=== PATIENT | female | born 1975 | race Caucasian/White ===

== ENCOUNTER → 2016-07-18 | Outpatient (CLI) | payer MEDICAID | LOC: RAD 10:55 | PROVIDERS: ATTEND Nurse Practitioner Family | DX: J18.9 Pneumonia, unspecified organism (principal) | CPT/HCPCS: 71020 ==

== ENCOUNTER → 2016-08-16 | Outpatient (CLI) | payer MEDICAID | LOC: RAD 15:10 | PROVIDERS: ATTEND Specialist | DX: Z12.31 Encounter for screening mammogram for malignant neoplasm of breast (principal) | CPT/HCPCS: 77067; G0202 ==

== ENCOUNTER → 2016-10-26 | Outpatient (CLI) | payer MEDICAID ==
--- NOTE | 2016-10-26 15:11 | RADIOLOGY REPORT (SQ) ---
EXAM DESCRIPTION: FOOT LEFT COMPLETE COMPLETED DATE/TIME: 10/26/2016 1:42 pm REASON FOR STUDY: FOOT PAIN, LEFT M79.672 PAIN IN LEFT FOOT COMPARISON: None. NUMBER OF VIEWS: Three views. TECHNIQUE: AP, lateral and oblique radiographic images acquired of the left foot. LIMITATIONS: None. FINDINGS: MINERALIZATION: Normal. BONES: No acute fracture or dislocation. Plantar calcaneal spur without fracture. JOINTS: No effusions. SOFT TISSUES: No soft tissue swelling. No foreign body. OTHER: No other significant finding. IMPRESSION: Plantar calcaneal spur without fracture TECHNICAL DOCUMENTATION: JOB ID: [id number] [employer]- All Rights Reserved
== END ==
LOC: RAD 13:17
PROVIDERS: ATTEND Nurse Practitioner Family
DX: M77.32 Calcaneal spur, left foot (principal)

== ENCOUNTER 2016-11-27 16:58 | Emergency (ER) | payer MEDICAID ==
--- NOTE | 2016-11-27 18:18 | ER Document Report ---
ED Medical Screen (RME) - General Chief Complaint: Abdominal Pain Stated Complaint: LOWER RIGHT ABDOMINAL PAIN Time Seen by Provider: 11/27/16 18:12 Notes: This 41-year-old female patient scheduled to have a hysterectomy at the end of November for ovarian cysts and chronic pelvic pain. She reports she always has pain in the right lower quadrant of her abdomen, but this morning it was much worse than usual and different from usual. She does have a history of ovarian cysts. The pain today is different in that it is much worse and it goes into the low back on the right. I have greeted and performed a rapid initial assessment of this patient. A comprehensive ED assessment and evaluation of the patient, analysis of test results and completion of the medical decision making process will be conducted by additional ED providers. TRAVEL OUTSIDE OF THE [place] IN LAST 30 DAYS: No - Related Data Allergies/Adverse Reactions: No Known Allergies Allergy (Verified 11/27/16 18:10) Home Medications: Current Home Medications Albuterol Sulfate [Ventolin Hfa 8 gm Mdi (1 Mdi/ER Disp)] 2 puff IH PRN PRN [History] Budesonide/Formoterol Fumarate [Symbicort Hfa 160-4.5 Mcg Inhaler 6 gm] 1 puff IH Q12 11/27/16 [History] Exenatide Microspheres [Bydureon Pen] 2 mg SQ Q7D 11/27/16 [History] Fluoxetine HCl [Prozac] 40 mg PO DAILY 11/27/16 [History] Lisinopril 40 mg PO DAILY 11/27/16 [History] Medroxyprogesterone Acetate [Provera] 40 mg PO DAILY 11/27/16 [History] Metformin HCl [Glucophage] 2,000 mg PO BID 11/27/16 [History] Methimazole 10 mg PO DAILY 11/27/16 [History] Simvastatin 20 mg PO DAILY 11/27/16 [History] Past Medical History - Past Medical History Cardiac Medical History: Reports: Hx Hypercholesterolemia, Hx Hypertension Renal/ Medical History: Denies: Hx Peritoneal Dialysis Past Surgical History: Reports: Hx Appendectomy, Hx Gynecologic Surgery - ovarian cysts, Hx Tubal Ligation. Denies: Hx Mastectomy - left breast biopsy Physical Exam - Vital signs Vitals: Temp Pulse Resp BP Pulse Ox 98.5 F 95 16 118/80 96 11/27/16 17:15 11/27/16 17:15 11/27/16 17:15 11/27/16 17:15 11/27/16 17:15 Course - Vital Signs Vital signs: Temp Pulse Resp BP Pulse Ox 98.5 F 95 16 118/80 96 11/27/16 17:15 11/27/16 17:15 11/27/16 17:15 11/27/16 17:15 11/27/16 17:15
[2016-11-27] MEDS ORDERED: OXYCODONE-ACETAMINOPHEN 5-325 MG TABLET PO ONE ×2 (18:25→20:31)
[2016-11-27] MEDS ORDERED: ONDANSETRON 4 MG TAB.RAPDIS PO ONE (18:25)
[2016-11-27 19:29] LABS: ABSOLUTE BASOPHILS # (AUTO) 0.1 10^3/uL (0.0-0.2); ABSOLUTE EOSINOPHILS # (AUTO) 0.2 10^3/uL (0.0-0.6); ABSOLUTE LYMPHOCYTES (AUTO) 5.2 10^3/uL (0.5-4.7); ABSOLUTE MONOCYTES (AUTO) 0.7 10^3/uL (0.1-1.4); ABSOLUTE NEUT (AUTO) 6.1 10^3/uL (1.7-8.2); BASOPHILS % (AUTO) 0.6 % (0-2); EOSINOPHILS % (AUTO) 1.7 % (0-6); HEMATOCRIT 45.3 % (36.0-47.0); HEMOGLOBIN 15.1 g/dL (12.0-15.5); LYMPHOCYTES % (AUTO) 42.5 % (13-45); MEAN CORPUSCULAR HEMOGLOBIN 30.9 pg (27.0-33.4); MEAN CORPUSCULAR HGB CONC 33.3 g/dL (32.0-36.0); MEAN CORPUSCULAR VOLUME 93 fl (80-97); MONOCYTES % (AUTO) 5.7 % (3-13); RED BLOOD COUNT 4.89 10^6/uL (3.72-5.28); RED CELL DISTRIBUTION WIDTH 13.4 % (11.5-14.0); SEGMENTED NEUTROPHILS % (AUTO) 49.5 % (42-78); WHITE BLOOD COUNT 12.3 10^3/uL (4.0-10.5)
[2016-11-27 19:36] LABS: APPEARANCE,URINE SLIGHTLY-CLOUDY; BILIRUBIN,URINE NEGATIVE (NEGATIVE); GLUCOSE, URINE NEGATIVE (NEGATIVE); KETONES,URINE NEGATIVE (NEGATIVE); LEUKOCYTE ESTERASE,URINE SMALL (NEGATIVE); NITRITE,URINE NEGATIVE (NEGATIVE); PROTEIN,URINE 30 mg/dL (NEGATIVE); UROBILINOGEN,URINE NEGATIVE mg/dL (<2.0)
[2016-11-27 19:47] LABS: ALANINE AMINOTRANSFERASE 59 U/L (9-52); ALBUMIN 4.7 g/dL (3.5-5.0); ALKALINE PHOSPHATASE 110 U/L (38-126); ANION GAP 14 (5-19); ASPARTATE AMINO TRANSFERASE 24 U/L (14-36); BILIRUBIN,DIRECT 0.3 mg/dL (0.0-0.4); BILIRUBIN,TOTAL 0.4 mg/dL (0.2-1.3); BLOOD UREA NITROGEN 19 mg/dL (7-20); CARBON DIOXIDE 24 mmol/L (22-30); CHLORIDE 104 mmol/L (98-107); CREATININE RESULT 0.78 mg/dL (0.52-1.25); GLUCOSE 86 mg/dL (75-110); POTASSIUM 4.4 mmol/L (3.6-5.0); SODIUM 141.8 mmol/L (137-145); TOTAL PROTEIN 7.8 g/dL (6.3-8.2)
[2016-11-27] MEDS ORDERED: IBUPROFEN 600 MG TABLET PO ONE (20:31)
--- NOTE | 2016-11-27 20:35 | ER Document Report ---
ED GI/ - General Chief Complaint: Abdominal Pain Stated Complaint: LOWER RIGHT ABDOMINAL PAIN Time Seen by Provider: 11/27/16 18:12 Notes: Patient is a 41-year-old female, past medical history chronic pelvic pain from multiple ovarian cysts, appendectomy, presents with increasing right pelvic pain that feels different than her prior ovarian cyst. She is scheduled for a complete hysterectomy in 2-1/[address] Swenson. Patient denies nausea, vomiting, diarrhea, constipation, vaginal discharge, dysuria, hematuria, fevers or flank pain. TRAVEL OUTSIDE OF THE [place] IN LAST 30 DAYS: No - Related Data Allergies/Adverse Reactions: No Known Allergies Allergy (Verified 11/27/16 18:10) Home Medications: Current Home Medications Albuterol Sulfate [Ventolin Hfa 8 gm Mdi (1 Mdi/ER Disp)] 2 puff IH PRN PRN [History] Budesonide/Formoterol Fumarate [Symbicort Hfa 160-4.5 Mcg Inhaler 6 gm] 1 puff IH Q12 11/27/16 [History] Exenatide Microspheres [Bydureon Pen] 2 mg SQ Q7D 11/27/16 [History] Fluoxetine HCl [Prozac] 40 mg PO DAILY 11/27/16 [History] Lisinopril 40 mg PO DAILY 11/27/16 [History] Medroxyprogesterone Acetate [Provera] 40 mg PO DAILY 11/27/16 [History] Metformin HCl [Glucophage] 2,000 mg PO BID 11/27/16 [History] Methimazole 10 mg PO DAILY 11/27/16 [History] Simvastatin 20 mg PO DAILY 11/27/16 [History] Past Medical History - General Information source: Patient - Social History Smoking Status: Never Smoker Chew tobacco use (# tins/day): No Frequency of alcohol use: None Drug Abuse: None Family History: Reviewed & Not Pertinent - Past Medical History Cardiac Medical History: Reports: Hx Hypercholesterolemia, Hx Hypertension Endocrine Medical History: Reports: Hx Diabetes Mellitus Type 2 Renal/ Medical History: Denies: Hx Peritoneal Dialysis Past Surgical History: Reports: Hx Appendectomy, Hx Gynecologic Surgery - ovarian cysts, Hx Tubal Ligation. Denies: Hx Mastectomy - left breast biopsy - Immunizations Hx Diphtheria, Pertussis, Tetanus Vaccination: No Review of Systems - Review of Systems Notes: REVIEW OF SYSTEMS: CONSTITUTIONAL: -fevers, -chills EENT: -eye pain, -difficulty swallowing, -nasal congestion CARDIOVASCULAR:-chest pain, -syncope. RESPIRATORY: -cough, -SOB GASTROINTESTINAL: +RLQ abdominal pain, - nausea, -vomiting, -diarrhea GENITOURINARY: -dysuria, -hematuria MUSCULOSKELETAL: -back pain, -neck pain SKIN: -rash or skin lesions. HEMATOLOGIC: -easy bruising or bleeding. LYMPHATIC: -swollen, enlarged glands. NEUROLOGICAL: -altered mental status or loss of consciousness, -headache, - neurologic symptoms PSYCHIATRIC: -anxiety, -depression. ALL OTHER SYSTEMS REVIEWED AND NEGATIVE. Physical Exam - Vital signs Vitals: Temp Pulse Resp BP Pulse Ox 98.5 F 95 16 118/80 96 11/27/16 17:15 11/27/16 17:15 11/27/16 17:15 11/27/16 17:15 11/27/16 17:15 - Notes Notes: PHYSICAL EXAMINATION: GENERAL: Uncomfortable. HEAD: Atraumatic, normocephalic. EYES: Pupils equal round and reactive to light, extraocular movements intact, sclera anicteric, conjunctiva are normal. ENT: nares patent, oropharynx clear without exudates. Moist mucous membranes. NECK: Normal range of motion, supple without lymphadenopathy LUNGS: Breath sounds clear to auscultation bilaterally and equal. No wheezes rales or rhonchi. HEART: Regular rate and rhythm without murmurs ABDOMEN: Soft, nontender, normoactive bowel sounds. No guarding, no rebound. No masses appreciated. EXTREMITIES: Normal range of motion, no pitting or edema. No cyanosis. NEUROLOGICAL: Cranial nerves grossly intact. Normal speech, normal gait. Normal sensory and motor exams. PSYCH: Normal mood, normal affect. SKIN: Warm, Dry, normal turgor, no rashes or lesions noted. Course - Re-evaluation Re-evalutation: Patient has a right ovarian cyst without evidence of torsion at this time. She has a total hysterectomy scheduled in 2 weeks. She does not have an appendix. 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 Given strict return precautions about ovarian torsion and she understands. - Vital Signs Vital signs: Temp Pulse Resp BP Pulse Ox 98.5 F 95 16 118/80 96 11/27/16 17:15 11/27/16 17:15 11/27/16 17:15 11/27/16 17:15 11/27/16 17:15 - Laboratory Result Diagrams: 11/27/16 19:04 11/27/16 19:04 Laboratory results interpreted by me: 11/27/16 11/27/16 11/27/16 19:04 19:04 19:04 WBC 12.3 H Absolute Lymphocytes 5.2 H ALT 59 H Urine Protein 30 H Urine Blood MODERATE H Ur Leukocyte Esterase SMALL H - Diagnostic Test Radiology reviewed: Image reviewed, Reports reviewed Radiology results interpreted by me: US Transvaginal: 2.7 x 2.7 x 1.9 cm right ovarian cyst with good arterial blood flow Discharge - Discharge Clinical Impression: Right ovarian cyst Condition: Stable Disposition: HOME, SELF-CARE Additional Instructions: Ovarian Cyst Your examination shows the presence of an ovarian cyst. This is a ball of fluid attached to the ovary. Ovarian cysts in women of child-bearing age are usually innocent. However, the cyst may cause pain when it grows or bursts. An innocent ovarian cyst will usually go away by itself. When the cyst becomes painful, you should rest. Pain medication may be required. Some women find a hot water bottle soothing. The pain usually resolves within one or two days. After menopause, an ovarian cyst may mean a tumor, and requires more aggressive evaluation -- usually surgery is recommended to remove or biopsy the cyst. A very large cyst requires evaluation at any age. Most cysts (even the innocent ones) require follow-up examination. Call the doctor or return at any time if the pain increases significantly, if you become faint, or if you experience vaginal bleeding. Prescriptions: Tramadol HCl [Ultram 50 mg Tablet] 50 mg PO Q4HP PRN #10 tab PRN Reason: Referrals: COLLIN SWENSON MD [ACTIVE STAFF] - Follow up as needed
--- NOTE | 2016-11-27 20:39 | RADIOLOGY REPORT (SQ) ---
EXAM DESCRIPTION: U/S NON-OB PELVIS TV W/O DOP COMPLETED DATE/TIME: 11/27/2016 8:29 pm REASON FOR STUDY: right pelvic pain, PMH ovary cysts, on provera COMPARISON: None. TECHNIQUE: Dynamic and static grayscale images acquired of the pelvis via transvaginal approach and recorded on PACS. Additional selected color Doppler and spectral images recorded. LIMITATIONS: None. FINDINGS: UTERUS: Contour normal. No mass. ENDOMETRIAL STRIPE: No focal or generalized thickening. No masses. CERVIX: No nabothian cysts. RIGHT OVARY: Right ovarian cyst is identified measuring 2.7 x 2.7 x 1.9 cm RIGHT OVARY DOPPLER: Normal arterial vascular flow without evidence for torsion. LEFT OVARY: Status post left oophorectomy FREE FLUID: None noted. OTHER: No other significant finding. MEASUREMENTS: UTERUS: 8.8 x 5.5 x 4.7 cm ENDOMETRIAL STRIPE: 3 mm RIGHT OVARY: 5.0 x 3.0 x 3.2 cm LEFT OVARY: Status post oophorectomy IMPRESSION: Right ovarian cyst as noted above. No other significant pelvic abnormalities were ident ified. Other findings as noted above TECHNICAL DOCUMENTATION: JOB ID: [id number] [employer]- All Rights Reserved
[2016-11-27 20:59] VITALS: BP 135/76
== END 2016-11-27 21:00 | disposition home or self-care (01) ==
LOC: ER 16:58
DX: N83.201 Unspecified ovarian cyst, right side (principal); R10.9 Unspecified abdominal pain; R10.30 Lower abdominal pain, unspecified; R10.2 Pelvic and perineal pain; G89.29 Other chronic pain; Z79.899 Other long term (current) drug therapy
CPT/HCPCS: 99284; 36415; 85025; 80053; 81001; 76830; S0119; J3490

== ENCOUNTER 2017-02-06 20:43 | Emergency (ER) | payer MEDICAID ==
[2017-02-06 20:51] VITALS: BP 127/65
--- NOTE | 2017-02-06 22:30 | ER Document Report ---
HPI - HPI Pain Level: 3 Context: Patient is a 41-year-old female presents emergency department complaining of right ear pain. Patient states that she has had this pain for about 1 week. She admits to pain in her ear with difficulty hearing. She states it hurts when she was rear when she applies pressure to her ear. Does have a history of TMJ. - CARDIOVASCULAR Cardiovascular: DENIES: Chest pain Past Medical History - Social History Smoking Status: Former Smoker Chew tobacco use (# tins/day): No Frequency of alcohol use: None Drug Abuse: None Family History: Reviewed & Not Pertinent Patient has suicidal ideation: No Patient has homicidal ideation: No - Past Medical History Cardiac Medical History: Reports: Hx Hypercholesterolemia, Hx Hypertension Endocrine Medical History: Reports: Hx Diabetes Mellitus Type 2 Renal/ Medical History: Denies: Hx Peritoneal Dialysis Past Surgical History: Reports: Hx Appendectomy, Hx Gynecologic Surgery - ovarian cysts, Hx Tubal Ligation. Denies: Hx Mastectomy - left breast biopsy - Immunizations Hx Diphtheria, Pertussis, Tetanus Vaccination: No Vertical Provider Document - CONSTITUTIONAL Notes: PHYSICAL EXAM GENERAL: Alert, interacts well. HEAD: Normocephalic, atraumatic. EYES: Pupils equal, round, and reactive to light. Extraocular movements intact. ENT: Evidence of external auditory canal erythema and tenderness of the right side. No evidence of vesicular disease. Tympanic membrane intact without evidence of bulging, perforation, injection or effusion oral mucosa moist, tongue midline. NECK: Full range of motion. Supple. Trachea midline. LUNGS: Clear to auscultation bilaterally, no wheezes, rales, or rhonchi. No respiratory distress. HEART: Regular rate and rhythm. No murmurs, gallops, or rubs. NEUROLOGICAL: Alert and oriented x4. Normal speech. PSYCH: Normal affect, normal mood. SKIN: Warm, dry, normal turgor. No rashes or lesions noted. - INFECTION CONTROL TRAVEL OUTSIDE OF THE [place] IN LAST 30 DAYS: No - RESPIRATORY O2 Sat by Pulse Oximetry: 97 Course - Re-evaluation Re-evalutation: 02/06/17 22:39 Patient is a 41-year-old female is hemodynamically stable, no acute distress afebrile. Presentation today is consistent with otitis externa. Educated mom on utilization of polymyxin B drops with hydrocortisone for her pain and otherwise to follow-up with primary care. Patient agrees with plan. Discussed signs and symptoms indicating return to the emergency department. - Vital Signs Vital signs: Temp Pulse Resp BP Pulse Ox 99.1 F 98 18 127/65 H 97 02/06/17 20:49 02/06/17 20:49 02/06/17 20:49 02/06/17 20:49 02/06/17 20:49 Discharge - Discharge Clinical Impression: Otitis externa Qualifiers: Otitis externa type: unspecified type Chronicity: acute Laterality: right Qualified Code(s): H60.501 - Unspecified acute noninfective otitis externa, right ear Condition: Good Disposition: HOME, SELF-CARE Instructions: Otitis Externa ([facility]), Acetaminophen, Use of Ear Drops ([facility]) Additional Instructions: Please utilize the eardrops eardrops 4 drops 4 times a day to the affected ear for 7 days. Please follow-up with your primary care provider in about 1 week for recheck. Forms: Return to School Referrals: SERVANDO YOU NP [Primary Care Provider] - Follow up in 1 week
[2017-02-06] MEDS ORDERED: NEOMY SULF/POLYMYX B SULF/HC OTIC SUSP 10 ML AD ONE (22:37)
[2017-02-06] MEDS ORDERED: DOCUSATE SODIUM 100 MG CAPSULE RT_EAR ONE (22:37)
[2017-02-06] MEDS ORDERED: IBUPROFEN 800 MG TABLET PO ONE (22:39)
== END 2017-02-06 23:04 | disposition home or self-care (01) ==
LOC: ER 20:43
DX: H60.501 Unspecified acute noninfective otitis externa, right ear (principal); H92.01 Otalgia, right ear; E11.9 Type 2 diabetes mellitus without complications; I10 Essential (primary) hypertension; Z87.891 Personal history of nicotine dependence
CPT/HCPCS: 99283; J3490 ×3

== ENCOUNTER → 2017-04-26 | Outpatient (CLI) | payer MEDICAID ==
[2017-04-26 11:17] LABS: ABSOLUTE BASOPHILS # (AUTO) 0.1 10^3/uL (0.0-0.2); ABSOLUTE EOSINOPHILS # (AUTO) 0.4 10^3/uL (0.0-0.6); ABSOLUTE LYMPHOCYTES (AUTO) 4.6 10^3/uL (0.5-4.7); ABSOLUTE MONOCYTES (AUTO) 0.7 10^3/uL (0.1-1.4); ABSOLUTE NEUT (AUTO) 4.8 10^3/uL (1.7-8.2); BASOPHILS % (AUTO) 0.6 % (0-2); EOSINOPHILS % (AUTO) 3.9 % (0-6); HEMATOCRIT 37.3 % (36.0-47.0); HEMOGLOBIN 12.7 g/dL (12.0-15.5); LYMPHOCYTES % (AUTO) 43.8 % (13-45); MEAN CORPUSCULAR HEMOGLOBIN 31.9 pg (27.0-33.4); MEAN CORPUSCULAR VOLUME 94 fl (80-97); MONOCYTES % (AUTO) 6.3 % (3-13); PLATELET COUNT 210 10^3/uL (150-450); RED BLOOD COUNT 3.97 10^6/uL (3.72-5.28); SEGMENTED NEUTROPHILS % (AUTO) 45.4 % (42-78); TOTAL CELLS COUNTED % (AUTO) 100 %; WHITE BLOOD COUNT 10.5 10^3/uL (4.0-10.5)
[2017-04-26 11:40] LABS: ALANINE AMINOTRANSFERASE 73 U/L (9-52); ALBUMIN 4.6 g/dL (3.5-5.0); ALKALINE PHOSPHATASE 72 U/L (38-126); ANION GAP 12 (5-19); ASPARTATE AMINO TRANSFERASE 38 U/L (14-36); BILIRUBIN,DIRECT 0.2 mg/dL (0.0-0.4); BILIRUBIN,TOTAL 0.5 mg/dL (0.2-1.3); BLOOD UREA NITROGEN 28 mg/dL (7-20); CALCIUM 10.6 mg/dL (8.4-10.2); CARBON DIOXIDE 24 mmol/L (22-30); CHLORIDE 107 mmol/L (98-107); GLUCOSE 88 mg/dL (75-110); POTASSIUM 5.4 mmol/L (3.6-5.0); SODIUM 143.3 mmol/L (137-145); TOTAL PROTEIN 7.4 g/dL (6.3-8.2)
== END ==
LOC: LAB 11:01
PROVIDERS: ATTEND Nurse Practitioner Family
DX: R10.11 Right upper quadrant pain (principal); R19.7 Diarrhea, unspecified; R11.10 Vomiting, unspecified
CPT/HCPCS: 36415; 80053; 85025; 87045; 87205; 87493; 89055

== ENCOUNTER 2017-08-14 14:44 | Inpatient (IN) | payer MEDICAID ==
--- NOTE | 2017-08-14 15:19 | ER Document Report ---
ED Medical Screen (RME) - General Chief Complaint: Weakness Stated Complaint: BLOOD SUGAR ISSUES Time Seen by Provider: 08/14/17 15:17 Notes: Patient is a 42-year-old female, past medical history diabetes, presents after a syncopal episode where she woke up on the ground. She hit her head and does not know what happened. No history of seizures and no loss of bowel or bladder. Blood glucose was 72 before eating some snacks prior to arrival. She checked her pulse after waking up and was 152 and blood pressure was 80/40. PE: NAD. Tachycardia. Lungs CTAB. 5/5 strength in all 4 extremities. I have greeted and performed a rapid initial assessment of this patient. A comprehensive ED assessment and evaluation of the patient, analysis of test results and completion of the medical decision making process will be conducted by additional ED providers. TRAVEL OUTSIDE OF THE [place] IN LAST 30 DAYS: No - Related Data Allergies/Adverse Reactions: No Known Allergies Allergy (Verified 08/14/17 14:45) Past Medical History - Past Medical History Cardiac Medical History: Reports: Hx Hypercholesterolemia, Hx Hypertension Endocrine Medical History: Reports: Hx Diabetes Mellitus Type 2 Renal/ Medical History: Denies: Hx Peritoneal Dialysis Past Surgical History: Reports: Hx Appendectomy, Hx Gynecologic Surgery - ovarian cysts, Hx Tubal Ligation. Denies: Hx Mastectomy - left breast biopsy - Immunizations Hx Diphtheria, Pertussis, Tetanus Vaccination: No Physical Exam - Vital signs Vitals: Temp Pulse Resp BP Pulse Ox 98.6 F 103 H 18 112/58 L 99 08/14/17 14:50 08/14/17 14:50 08/14/17 14:50 08/14/17 14:50 08/14/17 14:50 Course - Vital Signs Vital signs: Temp Pulse Resp BP Pulse Ox 98.6 F 103 H 18 112/58 L 99 08/14/17 14:50 08/14/17 14:50 08/14/17 14:50 08/14/17 14:50 08/14/17 14:50 Doctor's Discharge - Discharge Referrals: SERVANDO YOU NP [Primary Care Provider] - Follow up as needed
[2017-08-14 15:55] LABS: ABSOLUTE BASOPHILS # (AUTO) 0.1 10^3/uL (0.0-0.2); ABSOLUTE EOSINOPHILS # (AUTO) 0.2 10^3/uL (0.0-0.6); ABSOLUTE LYMPHOCYTES (AUTO) 4.5 10^3/uL (0.5-4.7); ABSOLUTE MONOCYTES (AUTO) 0.5 10^3/uL (0.1-1.4); ABSOLUTE NEUT (AUTO) 4.7 10^3/uL (1.7-8.2); BASOPHILS % (AUTO) 0.5 % (0-2); EOSINOPHILS % (AUTO) 1.9 % (0-6); HEMATOCRIT 41.4 % (36.0-47.0); LYMPHOCYTES % (AUTO) 45.4 % (13-45); MEAN CORPUSCULAR HEMOGLOBIN 30.9 pg (27.0-33.4); MEAN CORPUSCULAR HGB CONC 33.8 g/dL (32.0-36.0); MEAN CORPUSCULAR VOLUME 91 fl (80-97); MONOCYTES % (AUTO) 4.8 % (3-13); PLATELET COUNT 227 10^3/uL (150-450); RED BLOOD COUNT 4.53 10^6/uL (3.72-5.28); RED CELL DISTRIBUTION WIDTH 13.6 % (11.5-14.0); SEGMENTED NEUTROPHILS % (AUTO) 47.4 % (42-78); TOTAL CELLS COUNTED % (AUTO) 100 %
--- NOTE | 2017-08-14 16:12 | RADIOLOGY REPORT (SQ) ---
EXAM DESCRIPTION: CT HEAD WITHOUT COMPLETED DATE/TIME: 08/14/2017 4:01 pm REASON FOR STUDY: head injury, syncope COMPARISON: None. TECHNIQUE: Axial images acquired through the brain without intravenous contrast. Images reviewed wi th bone, brain and subdural windows. Images stored on PACS. All CT scanners at this facility use dose modulation, iterative reconstruction, and/or weight based d osing when appropriate to reduce radiation dose to as low as reasonably achievable (ALARA). [facility]: Dose Right [facility]: CareDose [facility]: Dose Right [facility]: Teradose 4D [facility]: Smart Zazoom RADIATION DOSE: CT Rad equipment meets quality standard of care and radiation dose reduction techniq ues were employed. CTDIvol: 53.2 mGy. DLP: 964 mGy-cm. mGy. LIMITATIONS: None. FINDINGS: VENTRICLES: Normal size and contour. CEREBRUM: No masses. No hemorrhage. No midline shift. No evidence for acute infarction. Normal gra y/white matter differentiation. No areas of low density in the white matter. CEREBELLUM: No masses. No hemorrhage. No alteration of density. No evidence for acute infarction. EXTRAAXIAL SPACES: No fluid collections. No masses. ORBITS AND GLOBE: No intra- or extraconal masses. Normal contour of globe without masses. CALVARIUM: No fracture. PARANASAL SINUSES: No fluid or mucosal thickening. SOFT TISSUES: No mass or hematoma. OTHER: No other significant finding. IMPRESSION: NORMAL BRAIN CT WITHOUT CONTRAST. EVIDENCE OF ACUTE STROKE: NO. COMMENT: Quality ID # [id number]: Final reports with documentation of one or more dose reduction techniques (e.g., Automated exposure control, adjustment of the mA and/or kV according to patient size, use of iterative reconstruction technique) TECHNICAL DOCUMENTATION: JOB ID: [id number] [employer]- All Rights Reserved Reading location - IP/workstation name: [facility]
[2017-08-14 16:13] LABS: ALANINE AMINOTRANSFERASE 80 U/L (9-52); ALBUMIN 4.7 g/dL (3.5-5.0); ALKALINE PHOSPHATASE 71 U/L (38-126); ANION GAP 16 (5-19); ASPARTATE AMINO TRANSFERASE 38 U/L (14-36); BILIRUBIN,DIRECT 0.2 mg/dL (0.0-0.4); BILIRUBIN,TOTAL 0.3 mg/dL (0.2-1.3); BLOOD UREA NITROGEN 32 mg/dL (7-20); CARBON DIOXIDE 22 mmol/L (22-30); CHLORIDE 104 mmol/L (98-107); GLUCOSE 117 mg/dL (75-110); POTASSIUM 4.9 mmol/L (3.6-5.0); SODIUM 142.1 mmol/L (137-145); TOTAL PROTEIN 7.5 g/dL (6.3-8.2)
--- NOTE | 2017-08-14 16:42 | ER Document Report ---
ED General - General Chief Complaint: Weakness Stated Complaint: BLOOD SUGAR ISSUES Time Seen by Provider: 08/14/17 15:17 Mode of Arrival: Ambulatory Information source: Patient Notes: 42-year-old female presents with complaints of syncopal episode. 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 IN LAST 30 DAYS: No - HPI Onset: Just prior to arrival Onset/Duration: Sudden Quality of pain: No pain Severity: Mild Pain Level: Denies Associated symptoms: Weakness Exacerbated by: Other - medication Relieved by: Denies Similar symptoms previously: Yes Recently seen / treated by doctor: Yes - Related Data Allergies/Adverse Reactions: No Known Allergies Allergy (Verified 08/14/17 14:45) Past Medical History - Social History Smoking Status: Former Smoker Cigarette use (# per day): No Chew tobacco use (# tins/day): No Smoking Education Provided: No Frequency of alcohol use: None Drug Abuse: None Family History: Reviewed & Not Pertinent Patient has suicidal ideation: No Patient has homicidal ideation: No - Past Medical History Cardiac Medical History: Reports: Hx Hypercholesterolemia, Hx Hypertension Endocrine Medical History: Reports: Hx Diabetes Mellitus Type 2 Renal/ Medical History: Denies: Hx Peritoneal Dialysis Past Surgical History: Reports: Hx Appendectomy, Hx Gynecologic Surgery - ovarian cysts, Hx Tubal Ligation. Denies: Hx Mastectomy - left breast biopsy - Immunizations Hx Diphtheria, Pertussis, Tetanus Vaccination: No Review of Systems - Review of Systems Notes: REVIEW OF SYSTEMS: CONSTITUTIONAL : Denies fever, chills, or sweats. Denies recent illness. EENT: Denies eye, ear, throat, or mouth pain or symptoms. Denies nasal or sinus congestion or discharge. Denies throat, tongue, or mouth swelling or difficulty swallowing. CARDIOVASCULAR: Denies chest pain. Denies palpitations or racing or irregular heart beat. Denies ankle edema. RESPIRATORY: Denies cough, cold, or chest congestion. Denies shortness of breath, difficulty breathing, or wheezing. GASTROINTESTINAL: Denies abdominal pain or distention. Denies nausea, vomiting , or diarrhea. Denies blood in vomitus, stools, or per rectum. Denies black, tarry stools. Denies constipation. GENITOURINARY: Denies difficulty urinating, painful urination, burning, frequency, blood in urine, or discharge. FEMALE GENITOURINARY: Denies vaginal bleeding, heavy or abnormal periods, irregular periods. Denies vaginal discharge or odor. MUSCULOSKELETAL: Denies back or neck pain or stiffness. Denies joint pain or swelling. SKIN: Denies rash, lesions or sores. HEMATOLOGIC : Denies easy bruising or bleeding. LYMPHATIC: Denies swollen, enlarged glands. NEUROLOGICAL: Admits to syncope. PSYCHIATRIC: Denies anxiety or stress. Denies depression, suicidal ideation, or homicidal ideation. ALL OTHER SYSTEMS REVIEWED AND NEGATIVE. PHYSICAL EXAMINATION: GENERAL: Well-appearing, well-nourished and in no acute distress. HEAD: Atraumatic, normocephalic. EYES: Pupils equal round and reactive to light, extraocular movements intact, conjunctiva are normal. ENT: Nares patent, oropharynx clear without exudates. Moist mucous membranes. NECK: Normal range of motion, supple without lymphadenopathy LUNGS: Breath sounds clear to auscultation bilaterally and equal. No wheezes rales or rhonchi. HEART: Regular rate and rhythm without murmurs ABDOMEN: Soft, nontender, nondistended abdomen. No guarding, no rebound. No masses appreciated. Female : deferred Musculoskeletal: Normal range of motion, no pitting or edema. No cyanosis. NEUROLOGICAL: Cranial nerves grossly intact. Normal speech, normal gait. Normal sensory, motor exams PSYCH: Normal mood, normal affect. SKIN: Warm, Dry, normal turgor, no rashes or lesions noted. Dictation was performed using [employer] voice recognition software Physical Exam - Vital signs Vitals: Temp Pulse Resp BP Pulse Ox 98.6 F 103 H 18 112/58 L 99 08/14/17 14:50 08/14/17 14:50 08/14/17 14:50 08/14/17 14:50 08/14/17 14:50 Course - Re-evaluation Re-evalutation: 08/14/17 16:41 Patient's blood sugar as of her symptoms, she also notes intermittent hypotension episodes as well. Lab work imaging noted no significant abnormality I will watch her and recheck her blood sugar to make sure that it does not drop quickly, 08/14/17 19:32 Patient is given IV fluids has been bad and has been given dextrose and the blood sugar keeps dropping 08/14/17 23:59 Patient was admitted to the hospitalist service for hypotension and hypoglycemia - Vital Signs Vital signs: Temp Pulse Resp BP Pulse Ox 97.7 F 89 12 111/72 99 08/14/17 22:06 08/14/17 22:06 08/14/17 22:06 08/14/17 22:06 08/14/17 22:06 - Laboratory Result Diagrams: 08/14/17 15:42 08/14/17 15:42 Laboratory results interpreted by me: 08/14/17 08/14/17 08/14/17 15:05 15:42 15:42 Lymphocytes % 45.4 H BUN 32 H Est GFR (Non-Af Amer) 58 L Glucose 117 H POC Glucose 133 H AST 38 H ALT 80 H Urine Blood Urine Nitrite 08/14/17 08/14/17 18:36 18:44 Lymphocytes % BUN Est GFR (Non-Af Amer) Glucose POC Glucose 118 H AST ALT Urine Blood SMALL H Urine Nitrite POSITIVE H - Diagnostic Test Radiology reviewed: Image reviewed, Reports reviewed Critical Care Note - Critical Care Note Total time excluding time spent on procedures (mins): 56 Comments: 56 minutes of critical care time spent in direct contact evaluating and reevaluating the patient, treating symptoms, reviewing labs and studies and speaking with family and consultants excluding any procedures Discharge - Discharge Clinical Impression: Hypoglycemia Hypotension Qualifiers: Hypotension type: hypotension due to drug Qualified Code(s): I95.2 - Hypotension due to drugs Condition: Stable Disposition: ADMITTED OBSERVATION Admitting Provider: Hospitalist Unit Admitted: Telemetry
[2017-08-14] MEDS ORDERED: NORMAL SALINE 1000 ML 1,000 ML IV ONE ×2 (16:47→18:51)
[2017-08-14] MEDS ORDERED: DEXTROSE 50%-WATER 25 GM/50 ML DISP.SYRIN IV ONE (17:56)
[2017-08-14 19:13] LABS: AMORPHOUS SEDIMENT,URINE TRACE /HPF; APPEARANCE,URINE CLOUDY; BILIRUBIN,URINE NEGATIVE (NEGATIVE); COLOR,URINE YELLOW; GLUCOSE, URINE NEGATIVE (NEGATIVE); KETONES,URINE NEGATIVE (NEGATIVE); LEUKOCYTE ESTERASE,URINE NEGATIVE (NEGATIVE); NITRITE,URINE POSITIVE (NEGATIVE); PROTEIN,URINE NEGATIVE (NEGATIVE); URINE SPECIFIC GRAVITY 1.009; UROBILINOGEN,URINE NEGATIVE mg/dL (<2.0)
[2017-08-14] MEDS ORDERED: DEXTROSE 5%-NORMAL SALINE 1,000 ML IV ONE (19:48)
[2017-08-14] MEDS ORDERED: ACETAMINOPHEN 325 MG TABLET PO PRN (20:22)
[2017-08-14] MEDS ORDERED: ONDANSETRON HCL INJ/PF 4 MG/2 ML SDV IV PRN (20:22)
[2017-08-14] MEDS ORDERED: GLUCAGON,HUMAN RECOMB 1 MG INJ IM PRN (20:30)
[2017-08-14] MEDS ORDERED: INSULIN LISPRO 100 UNIT/ML 3 ML VIAL SUBCUT PRN (20:30)
[2017-08-14] MEDS ORDERED: DEXTROSE 40% GEL 15 GM TUBE PO PRN ×2 (20:30)
[2017-08-14] MEDS ORDERED: DEXTROSE 50%-WATER 25 GM/50 ML DISP.SYRIN IV PRN ×2 (20:30)
--- NOTE | 2017-08-14 22:30 | EKG REPORT ---
SEVERITY:- BORDERLINE ECG - SINUS RHYTHM BORDERLINE R WAVE PROGRESSION, ANTERIOR LEADS : Confirmed by: Jane Schmidt 14-Aug-2017 22:29:26
--- NOTE | 2017-08-14 22:51 | PDOC H&P ---
History of Present Illness Admission Date/PCP: 08/14/17 20:15 SERVANDO YOU NP History of Present Illness: JULIO MARTÍNEZ is a 42 year old female patient with past medical history of diabetes mellitus, hypothyroidism, hypertension, hyperlipidemia and depression who report is she has been in her usual baseline state of health up until 2 days when she started to have dizziness and generalized body weakness. Patient notes her blood sugar is dropping in 40s despite eating adequately. In ER patient found to have blood sugar in 40s for which she given dextrose and she is fed well but her blood glucose remained low. Patient also noted to have hypotension with systolic of 70s for which she was given bolus of normal saline. At home patient takes metformin thousand milligrams twice a day and Exenatide extended release. Patient states that she has been losing weight and supposed to come off some of her diabetic medication by her pest control applicator in the coming 2 weeks. Patient denied any chills, fever, chest pain, cough, nausea , vomiting, abdominal pain or any change in her bowel habits. She does not have any urgency frequency or dysuria. Even though she has dizziness patient denied any blurring of vision or any seizure activity. Past Medical History Cardiac Medical History: Reports: Hyperlipidema, Hypertension Denies: Congestive Heart Failure, Myocardial Infarction Pulmonary Medical History: Reports: Asthma, Bronchitis, Pneumonia Denies: Chronic Obstructive Pulmonary Disease (COPD), Tuberculosis Neurological Medical History: Denies: Seizures Endocrine Medical History: Reports: Diabetes Mellitus Type 2 Renal/ Medical History: Denies: End Stage Renal Disease GI Medical History: Denies: Cirrhosis, Gastroesophageal Reflux Disease Musculoskeltal Medical History: Reports: Arthritis Psychiatric Medical History: Denies: Bipolar Disorder, Depression Hematology: Denies: Anemia, Bleeding Tendencies Past Surgical History Past Surgical History: Reports: Appendectomy, Hysterectomy, Orthopedic Surgery - L wrist, Tubal Ligation Denies: Mastectomy - left breast biopsy Social History Smoking Status: Former Smoker - Advance Directive Resuscitation Status: Full Code Family History Family History: Reviewed & Not Pertinent Parental Family History Reviewed: Yes Children Family History Reviewed: Yes Sibling(s) Family History Reviewed.: Yes Medication/Allergy Home Medications: Albuterol Sulfate [Ventolin Hfa 8 gm Mdi (1 Mdi/ER Disp)] 2 puff IH PRN PRN Budesonide/Formoterol Fumarate [Symbicort Hfa 160-4.5 Mcg Inhaler 6 gm] 2 puff IH Q12 11/27/16 Fluoxetine HCl [Prozac] 40 mg PO DAILY 11/27/16 Metformin HCl [Glucophage] 1,000 mg PO BID 11/27/16 Methimazole 10 mg PO DAILY 11/27/16 Simvastatin 20 mg PO DAILY 11/27/16 Estradiol [Estrace] 2 mg PO QHS 08/14/17 Lisinopril/Hydrochlorothiazide [Lisinopril-Hctz 20-12.5 mg Tab] 1 tab PO DAILY 08/14/17 Spironolactone [Aldactone] 50 mg PO QHS 08/14/17 Allergies/Adverse Reactions: No Known Allergies Allergy (Verified 08/14/17 14:45) Review of Systems Constitutional: PRESENT: as per HPI Ears: PRESENT: as per HPI Cardiovascular: PRESENT: as per HPI Respiratory: PRESENT: as per HPI Gastrointestinal: PRESENT: as per HPI Physical Exam Vital Signs: Temp Pulse Resp BP Pulse Ox 98.6 F 103 H 17 105/60 99 08/14/17 14:50 08/14/17 14:50 08/14/17 21:31 08/14/17 21:31 08/14/17 21:31 General appearance: PRESENT: no acute distress Head exam: PRESENT: atraumatic, normocephalic Respiratory exam: PRESENT: clear to auscultation kristin. ABSENT: rales, rhonchi, wheezes Cardiovascular exam: PRESENT: RRR. ABSENT: diastolic murmur, rubs, systolic murmur Neurological exam: PRESENT: alert, awake, oriented to time Results Impressions: Head CT 08/14/17 15:19 IMPRESSION: NORMAL BRAIN CT WITHOUT CONTRAST. EVIDENCE OF ACUTE STROKE: NO. Assessment & Plan - Diagnosis (1) Hypoglycemia Is this a current diagnosis for this admission?: Yes Plan: Patient has been started on normal saline and dextrose. Her blood sugar is coming up. Hold her metformin and injectables (2) Hypotension Qualifiers: Hypotension type: hypotension due to drug Qualified Code(s): I95.2 - Hypotension due to drugs Is this a current diagnosis for this admission?: Yes Plan: Patient has been getting normal saline at rate of 125 mL/h. We will hold her antihypertensive medications. (3) Diabetes mellitus Qualifiers: Diabetes mellitus type: type 2 Is this a current diagnosis for this admission?: Yes Plan: Hold injectables and oral hypoglycemic agent We will start her on sliding scale. Patient needs follow-up with her primary endocrinologists to adjust her medications. (4) Hyperlipidemia Qualifiers: Hyperlipidemia type: unspecified Qualified Code(s): E78.5 - Hyperlipidemia , unspecified Is this a current diagnosis for this admission?: Yes Plan: Continue oral statins - Time Time Spent: 30 to 50 Minutes - Inpatient Certification Medical Necessity: Need For IV Fluids
[2017-08-15 05:11] LABS: HEMATOCRIT 34.5 % (36.0-47.0); MEAN CORPUSCULAR HEMOGLOBIN 31.3 pg (27.0-33.4); MEAN CORPUSCULAR HGB CONC 34.2 g/dL (32.0-36.0); MEAN CORPUSCULAR VOLUME 91 fl (80-97); PLATELET COUNT 180 10^3/uL (150-450); RED BLOOD COUNT 3.77 10^6/uL (3.72-5.28); RED CELL DISTRIBUTION WIDTH 13.3 % (11.5-14.0)
[2017-08-15 05:16] LABS: HEMOGLOBIN 11.8 g/dL (12.0-15.5)
[2017-08-15 05:30] LABS: ANION GAP 13 (5-19); BLOOD UREA NITROGEN 26 mg/dL (7-20); CALCIUM 9.2 mg/dL (8.4-10.2); CARBON DIOXIDE 21 mmol/L (22-30); CHLORIDE 108 mmol/L (98-107); GLUCOSE 90 mg/dL (75-110); POTASSIUM 4.6 mmol/L (3.6-5.0); SODIUM 142.1 mmol/L (137-145)
[2017-08-15] MEDS: LANSOPRAZOLE 15 MG TAB.RAP.DR PO SCH (06:24)
[2017-08-15] MEDS: DEXTROSE 5%-NORMAL SALINE 1,000 ML IV PRN (06:27)
[2017-08-15] MEDS ORDERED: ALBUTEROL SULFATE HFA (90 MCG/PUFF) 8 GM MDI (1 MDI/ER DISP) IH PRN (11:29)
[2017-08-15] MEDS ORDERED: (PENDING PHARMACY ID) (Methimazole [Methimazole] 10 MG) PO SCH (11:30)
[2017-08-15] MEDS ORDERED: ALBUTEROL SULFATE HFA (90 MCG/PUFF) 200 PUFF/8.5 GM MDI IH PRN (11:56)
[2017-08-15] MEDS ORDERED: FLUOXETINE HCL 20 MG CAPSULE PO ONE (13:00)
[2017-08-15] MEDS: ENOXAPARIN SODIUM INJ 40 MG/0.4 ML DISP.SYRIN SUBCUT SCH (13:24)
[2017-08-15] MEDS: DOCUSATE SODIUM 100 MG CAPSULE PO SCH ×2 (13:26→17:31)
--- NOTE | 2017-08-15 13:45 | PDOC PROGRESS REPORT ---
Subjective Progress Note for:: 08/15/17 Subjective:: Feeling a little better. Still with episodes of hypoglycemia. No recurrent syncope, no chest pain no fever or chills, no nausea or vomiting. Denies abdominal pain. No dysuria or polyuria, will urinary frequency. Denies cough or hemoptysis. Reason For Visit: HYPOTENSION,HYPOGLYCEMIA Physical Exam Vital Signs: Temp Pulse Resp BP Pulse Ox 98.2 F 85 18 103/54 L 98 08/15/17 11:24 08/15/17 11:24 08/15/17 11:24 08/15/17 11:24 08/15/17 11:24 Intake & Output 08/14/17 08/15/17 08/16/17 06:59 06:59 06:59 Intake Total 500 575 Balance 500 575 Weight 103.2 kg GEN: NAD, well-developed, well-nourished CV: RRR, NL S1S2 LUNGS: CTA bilaterally ABDOMEN Soft, NT, +BS EXTERMITIES: No e/c/c NEURO: Alert, oriented 3, nonfocal Results Laboratory Results: 08/15/17 04:10 08/15/17 04:10 08/15/17 08/15/17 08/15/17 04:10 04:10 04:10 WBC 9.0 RBC 3.77 Hgb 11.8 L D Hct 34.5 L MCV 91 MCH 31.3 MCHC 34.2 RDW 13.3 Plt Count 180 Sodium 142.1 Potassium 4.6 Chloride 108 H Carbon Dioxide 21 L Anion Gap 13 BUN 26 H Creatinine 0.90 Est GFR ( Amer) > 60 Est GFR (Non-Af Amer) > 60 Glucose 90 Calcium 9.2 TSH 2.40 Impressions: Head CT 08/14/17 15:19 IMPRESSION: NORMAL BRAIN CT WITHOUT CONTRAST. EVIDENCE OF ACUTE STROKE: NO. Assessment & Plan - Plan Summary Plan Summary: (1) Hypoglycemia Is this a current diagnosis for this admission?: Yes Plan: Will continue on normal saline and dextrose. Will continue to hold her metformin and Bydureon. Will check chest x-ray to complete workup etiology, although I suspect for infectious weight loss in the past couple of years may be responsible for decreasing her need for diabetes medications. UA unremarkable. (2) Hypotension Qualifiers: Hypotension type: hypotension due to drug Qualified Code(s): I95.2 - Hypotension due to drugs Is this a current diagnosis for this admission?: Yes Plan: Patient has been getting normal saline at rate of 125 mL/h--continue for now. We will still continue to hold her antihypertensive medications. (3) Diabetes mellitus Qualifiers: Diabetes mellitus type: type 2 Is this a current diagnosis for this admission?: Yes Plan: As an hypoglycemia. Sliding scale insulin if needed. (4) Hyperlipidemia Qualifiers: Hyperlipidemia type: unspecified Qualified Code(s): E78.5 - Hyperlipidemia , unspecified Is this a current diagnosis for this admission?: Yes Plan: Continue oral statins
[2017-08-15] MEDS ORDERED: BUDESONIDE/FORMOTEROL 160-4.5 MCG 60 PUFF/6 GM MDI IH ONE (14:00)
--- NOTE | 2017-08-15 15:10 | RADIOLOGY REPORT (SQ) ---
EXAM DESCRIPTION: CHEST 2 VIEWS COMPLETED DATE/TIME: 08/15/2017 2:59 pm REASON FOR STUDY: Hypoglycemia COMPARISON: 2017. TECHNIQUE: Frontal and lateral radiographic views of the chest acquired. NUMBER OF VIEWS: Two view. LIMITATIONS: None. FINDINGS: LUNGS AND PLEURA: Minimal left basilar scar. MEDIASTINUM AND HILAR STRUCTURES: No masses or contour abnormalities. HEART AND VASCULAR STRUCTURES: Heart normal size. No evidence for failure. BONES: No acute findings. HARDWARE: None in the chest. OTHER: No other significant finding. IMPRESSION: No acute or suspicious findings. TECHNICAL DOCUMENTATION: JOB ID: [id number] [employer]- All Rights Reserved Reading location - IP/workstation name: [email or web address]
[2017-08-15] MEDS: SIMVASTATIN 10 MG TABLET PO SCH (21:14)
[2017-08-15] MEDS: BUDESONIDE/FORMOTEROL 160-4.5 MCG 60 PUFF/6 GM MDI IH SCH (21:15)
[2017-08-15] MEDS ORDERED: (PENDING PHARMACY ID) (Estradiol [Estrace] 2 MG) PO SCH (22:00)
[2017-08-16 05:07] LABS: ABSOLUTE EOSINOPHILS # (AUTO) 0.2 10^3/uL (0.0-0.6); ABSOLUTE LYMPHOCYTES (AUTO) 3.8 10^3/uL (0.5-4.7); ABSOLUTE MONOCYTES (AUTO) 0.5 10^3/uL (0.1-1.4); ABSOLUTE NEUT (AUTO) 2.6 10^3/uL (1.7-8.2); BASOPHILS % (AUTO) 0.4 % (0-2); EOSINOPHILS % (AUTO) 2.3 % (0-6); HEMATOCRIT 33.1 % (36.0-47.0); HEMOGLOBIN 11.3 g/dL (12.0-15.5); LYMPHOCYTES % (AUTO) 54.3 % (13-45); MEAN CORPUSCULAR HEMOGLOBIN 31.4 pg (27.0-33.4); MEAN CORPUSCULAR HGB CONC 34.3 g/dL (32.0-36.0); MEAN CORPUSCULAR VOLUME 92 fl (80-97); MONOCYTES % (AUTO) 6.6 % (3-13); PLATELET COUNT 160 10^3/uL (150-450); RED BLOOD COUNT 3.61 10^6/uL (3.72-5.28); RED CELL DISTRIBUTION WIDTH 13.3 % (11.5-14.0); SEGMENTED NEUTROPHILS % (AUTO) 36.4 % (42-78); TOTAL CELLS COUNTED % (AUTO) 100 %; WHITE BLOOD COUNT 7.1 10^3/uL (4.0-10.5)
[2017-08-16 05:36] LABS: ANION GAP 10 (5-19); BLOOD UREA NITROGEN 18 mg/dL (7-20); CARBON DIOXIDE 23 mmol/L (22-30); CHLORIDE 112 mmol/L (98-107); GLUCOSE 90 mg/dL (75-110); POTASSIUM 4.3 mmol/L (3.6-5.0); SODIUM 145.3 mmol/L (137-145)
[2017-08-16] MEDS: DEXTROSE 5%-NORMAL SALINE 1,000 ML IV PRN (05:50)
[2017-08-16] MEDS: LANSOPRAZOLE 15 MG TAB.RAP.DR PO SCH (05:50)
[2017-08-16] MEDS ORDERED: (PENDING PHARMACY ID) (Simvastatin [Simvastatin] 20 MG) PO SCH (10:00)
[2017-08-16] MEDS: ENOXAPARIN SODIUM INJ 40 MG/0.4 ML DISP.SYRIN SUBCUT SCH (10:26)
[2017-08-16] MEDS: FLUOXETINE HCL 20 MG CAPSULE PO SCH (10:27)
[2017-08-16] MEDS: DOCUSATE SODIUM 100 MG CAPSULE PO SCH ×2 (10:27→17:37)
[2017-08-16] MEDS: METHIMAZOLE 5 MG TABLET PO SCH (10:28)
[2017-08-16] MEDS: BUDESONIDE/FORMOTEROL 160-4.5 MCG 60 PUFF/6 GM MDI IH SCH ×2 (10:28→21:51)
--- NOTE | 2017-08-16 16:55 | PDOC PROGRESS REPORT ---
Subjective Progress Note for:: 08/16/17 Subjective:: Feeling a little better, although still with lightheadedness when she gets up. Hypoglycemia has improved, but blood glucose still running in the 90s on D5 normal saline at 100 mL/h. No recurrent syncope, no chest pain no fever or chills, no nausea or vomiting. Denies abdominal pain. No dysuria or polyuria, will urinary frequency. Denies cough or hemoptysis. Reason For Visit: HYPOTENSION,HYPOGLYCEMIA Physical Exam Vital Signs: Temp Pulse Resp BP Pulse Ox 98.4 F 85 18 111/75 100 08/16/17 15:34 08/16/17 15:34 08/16/17 15:34 08/16/17 15:34 08/16/17 15:34 Intake & Output 08/15/17 08/16/17 08/17/17 06:59 06:59 06:59 Intake Total 500 2475 Balance 500 2475 Weight 103.2 kg 103.4 kg GEN: NAD, well-developed, well-nourished CV: RRR, NL S1S2 LUNGS: CTA bilaterally ABDOMEN Soft, NT, +BS EXTERMITIES: No e/c/c NEURO: Alert, oriented 3, nonfocal Results Laboratory Results: 08/16/17 04:33 08/16/17 04:33 08/16/17 08/16/17 04:33 04:33 WBC 7.1 RBC 3.61 L Hgb 11.3 L Hct 33.1 L MCV 92 MCH 31.4 MCHC 34.3 RDW 13.3 Plt Count 160 Seg Neutrophils % 36.4 L Lymphocytes % 54.3 H Monocytes % 6.6 Eosinophils % 2.3 Basophils % 0.4 Absolute Neutrophils 2.6 Absolute Lymphocytes 3.8 Absolute Monocytes 0.5 Absolute Eosinophils 0.2 Absolute Basophils 0.0 Sodium 145.3 H Potassium 4.3 Chloride 112 H Carbon Dioxide 23 Anion Gap 10 BUN 18 Creatinine 0.97 Est GFR ( Amer) > 60 Est GFR (Non-Af Amer) > 60 Glucose 90 Calcium 9.0 Impressions: Head CT 08/14/17 15:19 IMPRESSION: NORMAL BRAIN CT WITHOUT CONTRAST. EVIDENCE OF ACUTE STROKE: NO. Chest X-Ray 08/15/17 00:00 IMPRESSION: No acute or suspicious findings. Assessment & Plan - Plan Summary Plan Summary: (1) Hypoglycemia Is this a current diagnosis for this admission?: Yes Plan: Will discontinue normal saline/dextrose for now and see if blood sugars remain okay. Will continue to hold her metformin and Bydureon. Will check chest x-ray negative for infection, as is UA. Suspect that patient's reports of weight loss in the past couple of years (30 to 50 debbie nds) may be responsible for decreasing her need for diabetes medications. (2) Hypotension Qualifiers: Hypotension type: hypotension due to drug Qualified Code(s): I95.2 - Hypotension due to drugs Is this a current diagnosis for this admission?: Yes Plan: Patient has been getting normal saline at rate of 125 mL/h--will discontinue for now. We will still continue to hold her antihypertensive medications. (3) Diabetes mellitus Qualifiers: Diabetes mellitus type: type 2 Is this a current diagnosis for this admission?: Yes Plan: As in hypoglycemia. Sliding scale insulin if needed. (4) Hyperlipidemia Qualifiers: Hyperlipidemia type: unspecified Qualified Code(s): E78.5 - Hyperlipidemia , unspecified Is this a current diagnosis for this admission?: Yes Plan: Continue oral statins Possible discharge home in a.m. if stable/improved. Suspect she will have to follow-up with universal winding machine operator to see if to restart any medications for diabetes. Hemoglobin A1c markedly improved at 5.4.
[2017-08-16] MEDS: SIMVASTATIN 10 MG TABLET PO SCH (21:51)
[2017-08-17 04:34] LABS: ABSOLUTE EOSINOPHILS # (AUTO) 0.2 10^3/uL (0.0-0.6); ABSOLUTE LYMPHOCYTES (AUTO) 3.7 10^3/uL (0.5-4.7); ABSOLUTE MONOCYTES (AUTO) 0.6 10^3/uL (0.1-1.4); ABSOLUTE NEUT (AUTO) 2.9 10^3/uL (1.7-8.2); BASOPHILS % (AUTO) 0.4 % (0-2); EOSINOPHILS % (AUTO) 2.1 % (0-6); HEMATOCRIT 34.5 % (36.0-47.0); HEMOGLOBIN 11.7 g/dL (12.0-15.5); LYMPHOCYTES % (AUTO) 50.6 % (13-45); MEAN CORPUSCULAR HEMOGLOBIN 30.9 pg (27.0-33.4); MEAN CORPUSCULAR HGB CONC 33.8 g/dL (32.0-36.0); MEAN CORPUSCULAR VOLUME 92 fl (80-97); MONOCYTES % (AUTO) 7.8 % (3-13); PLATELET COUNT 165 10^3/uL (150-450); RED BLOOD COUNT 3.77 10^6/uL (3.72-5.28); RED CELL DISTRIBUTION WIDTH 13.4 % (11.5-14.0); SEGMENTED NEUTROPHILS % (AUTO) 39.1 % (42-78); TOTAL CELLS COUNTED % (AUTO) 100 %; WHITE BLOOD COUNT 7.3 10^3/uL (4.0-10.5)
[2017-08-17 04:53] LABS: ANION GAP 13 (5-19); BLOOD UREA NITROGEN 18 mg/dL (7-20); CARBON DIOXIDE 24 mmol/L (22-30); CHLORIDE 111 mmol/L (98-107); GLUCOSE 86 mg/dL (75-110); POTASSIUM 4.3 mmol/L (3.6-5.0); SODIUM 147.5 mmol/L (137-145)
[2017-08-17] MEDS: LANSOPRAZOLE 15 MG TAB.RAP.DR PO SCH (06:05)
[2017-08-17] MEDS: METHIMAZOLE 5 MG TABLET PO SCH (09:15)
[2017-08-17] MEDS: BUDESONIDE/FORMOTEROL 160-4.5 MCG 60 PUFF/6 GM MDI IH SCH (09:15)
[2017-08-17] MEDS: ENOXAPARIN SODIUM INJ 40 MG/0.4 ML DISP.SYRIN SUBCUT SCH (09:15)
[2017-08-17] MEDS: DOCUSATE SODIUM 100 MG CAPSULE PO SCH (09:16)
[2017-08-17] MEDS: FLUOXETINE HCL 20 MG CAPSULE PO SCH (09:16)
[2017-08-17 11:00] VITALS: BP 111/72
--- NOTE | 2017-08-17 18:46 | PDOC DISCHARGE SUMMARY ---
General - Admit/Disc Date/PCP Admission Date/Primary Care Provider: 08/14/17 20:15 SERVANDO YOU NP Discharge Date: 08/17/17 - Discharge Diagnosis (1) Hypoglycemia Is this a current diagnosis for this admission?: Yes Summary: Improved at discharge. At discharge will continue to hold metformin given that HgA1c was 5.4%. Should discuss with PCP if needs to be on oral anti-glycemics at this point or can follow diabetic diet and exercise. (2) Hypotension Is this a current diagnosis for this admission?: Yes Summary: Improved, likely due to over medication - At discharge, held Lisinopril/HCTZ and Spironolactone - Advised to keep BP log until seen with PCP - Discuss which agent, if any, should be re-started as an outpatient (3) Diabetes mellitus Is this a current diagnosis for this admission?: Yes Summary: Per above. - Additional Information Resuscitation Status: Full Code Discharge Diet: Diabetic Discharge Activity: Activity As Tolerated Home Medications: Albuterol Sulfate [Ventolin Hfa 8 gm Mdi (1 Mdi/ER Disp)] 2 puff IH PRN PRN Budesonide/Formoterol Fumarate [Symbicort HFA 160-4.5 mcg Inhaler 6 gm] 2 puff IH Q12 11/27/16 Fluoxetine HCl [Prozac] 40 mg PO DAILY 11/27/16 Methimazole 10 mg PO DAILY 11/27/16 Simvastatin 20 mg PO DAILY 11/27/16 Estradiol [Estrace] 2 mg PO QHS 08/14/17 History of Present Illness History of Present Illness: JULIO MARTÍNEZ is a 42 year old female with past medical history of diabetes mellitus, hypothyroidism, hypertension, hyperlipidemia and depression who report is she has been in her usual baseline state of health up until 2 days when she started to have dizziness and generalized body weakness. Patient notes her blood sugar is dropping in 40s despite eating adequately. In ER patient found to have blood sugar in 40s for which she given dextrose and she is fed well but her blood glucose remained low. Patient also noted to have hypotension with systolic of 70s for which she was given bolus of normal saline. At home patient takes metformin thousand milligrams twice a day and Exenatide extended release. Patient states that she has been losing weight and supposed to come off some of her diabetic medication by her spool sorter in the coming 2 weeks. Patient denied any chills, fever, chest pain, cough, nausea , vomiting, abdominal pain or any change in her bowel habits. She does not have any urgency frequency or dysuria. Even though she has dizziness patient denied any blurring of vision or any seizure activity. Admitted to hospitalist service for further evaluation. Physical Exam Vital Signs: Temp Pulse Resp BP Pulse Ox 97.8 F 83 16 111/72 100 08/17/17 11:00 08/17/17 11:00 08/17/17 11:00 08/17/17 11:00 08/17/17 11:00 Intake & Output 08/16/17 08/17/17 08/18/17 06:59 06:59 06:59 Intake Total 2475 2500 Balance 2475 2500 Weight 103.4 kg 102.7 kg General appearance: PRESENT: no acute distress, obese, well-developed, well- nourished Mouth exam: PRESENT: moist Respiratory exam: PRESENT: clear to auscultation kristin, unlabored Cardiovascular exam: PRESENT: +S1, +S2. ABSENT: systolic murmur, tachycardia GI/Abdominal exam: PRESENT: soft. ABSENT: tenderness Neurological exam: PRESENT: alert, awake, CN II-XII grossly intact Psychiatric exam: PRESENT: appropriate affect Results Laboratory Results: 08/17/17 03:52 08/17/17 03:52 08/17/17 08/17/17 03:52 03:52 WBC 7.3 RBC 3.77 Hgb 11.7 L Hct 34.5 L MCV 92 MCH 30.9 MCHC 33.8 RDW 13.4 Plt Count 165 Seg Neutrophils % 39.1 L Lymphocytes % 50.6 H Monocytes % 7.8 Eosinophils % 2.1 Basophils % 0.4 Absolute Neutrophils 2.9 Absolute Lymphocytes 3.7 Absolute Monocytes 0.6 Absolute Eosinophils 0.2 Absolute Basophils 0.0 Sodium 147.5 H Potassium 4.3 Chloride 111 H Carbon Dioxide 24 Anion Gap 13 BUN 18 Creatinine 0.84 Est GFR ( Amer) > 60 Est GFR (Non-Af Amer) > 60 Glucose 86 Calcium 9.0 Impressions: Head CT 08/14/17 15:19 IMPRESSION: NORMAL BRAIN CT WITHOUT CONTRAST. EVIDENCE OF ACUTE STROKE: NO. Chest X-Ray 08/15/17 00:00 IMPRESSION: No acute or suspicious findings. Qualifiers - * PATIENT BEING DISCHARGED WITH ANY OF THE FOLLOWING DIAGNOSIS: No
== END 2017-08-17 11:47 | disposition home or self-care (01) | DRG 312 ==
LOC: ER 14:44 → EH 20:15 → OBSVTOIN 20:15 → 3N 22:02
PROVIDERS: ADMIT Internal Medicine; ATTEND Internal Medicine
DX: I95.2 Hypotension due to drugs (principal); E11.649 Type 2 diabetes mellitus with hypoglycemia without coma; T38.3X5A Adverse effect of insulin and oral hypoglycemic [antidiabetic] drugs, initial encounter; E03.9 Hypothyroidism, unspecified; T46.4X5A Adverse effect of angiotensin-converting-enzyme inhibitors, initial encounter; I10 Essential (primary) hypertension; E78.5 Hyperlipidemia, unspecified; M19.90 Unspecified osteoarthritis, unspecified site; F32.9 Major depressive disorder, single episode, unspecified; Z79.84 Long term (current) use of oral hypoglycemic drugs; Z90.49 Acquired absence of other specified parts of digestive tract; Z90.710 Acquired absence of both cervix and uterus; Z79.899 Other long term (current) drug therapy
CPT/HCPCS: 36415; 70450; 71046; 80048; 80053; 81001; 81025; 82962; 83036; 84443; 85025; 85027; 93005; 93010; 96361; 96374; 99291; J1650; J3490; J7030

== ENCOUNTER 2018-04-10 11:01 | Emergency (ER) | payer MEDICAID ==
--- NOTE | 2018-04-10 12:20 | ER Document Report ---
ED Medical Screen (RME) - General TRAVEL OUTSIDE OF THE [place] IN LAST 30 DAYS: No COUNTRY TRAVELED TO/FROM: [place] <MUKESH FRIAS - Last Filed: 04/10/18 12:57> <JOSEPHINE TEAGUE - Last Filed: 04/10/18 21:38> - General Chief Complaint: Vaginal Bleeding Stated Complaint: VAGINAL BLEEDING/CRAMPING Time Seen by Provider: 04/10/18 12:14 Notes: 42-year-old female who presents to the emergency department today with complaints of lower back pain on the right side that is described as sharp pain for the last few days. Patient states this morning she noticed blood when she was wiping. Patient states she is fairly certain blocks, her vagina it was light brown in color. Patient states she has had a complete hysterectomy. Patient complains of associated lower abdominal cramping. Patient denies any dysuria, recent sexual intercourse, any vaginal trauma, or history of kidney stones. I have greeted and performed a rapid initial assessment of this patient. A comprehensive ED assessment and evaluation of the patient, analysis of test results, and completion of the medical decision making process will be conducted by additional ED providers. Review of systems: Gastrointestinal: Vaginal bleeding. Lower abdominal cramping. Right lower back pain. Genitourinary: Denies dysuria. PHYSICAL EXAM GENERAL: Alert, interacts well. No acute distress. HEAD: Normocephalic, atraumatic. EYES: Pupils equal, round, and reactive to light. Extraocular movements intact. ENT: Oral mucosa moist, tongue midline. NECK: Full range of motion. Supple. Trachea midline. LUNGS: No respiratory distress. EXTREMITIES: Moves all 4 extremities spontaneously. NEUROLOGICAL: Alert and oriented x3. Normal speech. PSYCH: Normal affect, normal mood. SKIN: Warm, dry, normal turgor. No rashes or lesions noted. (MUKESH FRIAS) - Related Data Allergies/Adverse Reactions: No Known Allergies Allergy (Verified 08/14/17 14:45) Past Medical History - Social History Chew tobacco use (# tins/day): No Frequency of alcohol use: None Drug Abuse: None - Past Medical History Cardiac Medical History: Reports: Hx Hypercholesterolemia, Hx Hypertension Denies: Hx Congestive Heart Failure, Hx Heart Attack Pulmonary Medical History: Reports: Hx Asthma, Hx Bronchitis, Hx Pneumonia Denies: Hx COPD, Hx Tuberculosis Neurological Medical History: Denies: Hx Seizures Endocrine Medical History: Reports: Hx Diabetes Mellitus Type 2 Renal/ Medical History: Denies: Hx End Stage Renal Disease, Hx Kidney Stones, Hx Peritoneal Dialysis GI Medical History: Denies: Hx Cirrhosis, Hx Gastroesophageal Reflux Disease, Hx Ulcer Musculoskeltal Medical History: Reports Hx Arthritis, Denies Hx Multiple Sclerosis Psychiatric Medical History: Denies: Hx Bipolar Disorder, Hx Depression, Hx Schizophrenia Past Surgical History: Reports: Hx Appendectomy, Hx Gynecologic Surgery - ovarian cysts, Hx Hysterectomy, Hx Orthopedic Surgery - L wrist, Hx Tubal Ligation. Denies: Hx Mastectomy - left breast biopsy - Immunizations Hx Diphtheria, Pertussis, Tetanus Vaccination: No History of Influenza Vaccine for 01/2017 - 06/2017 Season: No <MUKESH FRIAS - Last Filed: 04/10/18 12:57> - Vital signs Vitals: Temp Pulse Resp BP Pulse Ox 97.9 F 85 15 116/63 99 04/10/18 11:13 04/10/18 11:13 04/10/18 11:13 04/10/18 11:13 04/10/18 11:13 Course - Laboratory Result Diagrams: 04/10/18 12:37 04/10/18 12:37 <MUKESH FRIAS - Last Filed: 04/10/18 12:57> - Laboratory Result Diagrams: 04/10/18 12:37 04/10/18 12:37 <JOSEPHINE TEAGUE - Last Filed: 04/10/18 21:38> - Vital Signs Vital signs: Temp Pulse Resp BP Pulse Ox 97.9 F 85 16 112/76 99 04/10/18 11:13 04/10/18 11:13 04/10/18 18:01 04/10/18 18:01 04/10/18 18:01 - Laboratory Laboratory results interpreted by me: 04/10/18 04/10/18 12:37 12:37 Glucose 139 H ALT 67 H Urine Blood SMALL H Urine Nitrite POSITIVE H Doctor's Discharge <MUKESH FRIAS - Last Filed: 04/10/18 12:57> <JOSEPHINE TEAGUE - Last Filed: 04/10/18 21:38> - Discharge Clinical Impression: Flank pain, Dysuria, Hematuria, Abdominal cramping Condition: Good Disposition: HOME, SELF-CARE Instructions: Abdominal Pain ([facility]), Flank Pain ([facility]), Hematuria ([facility]), Urinary Tract Infection ([facility]) Additional Instructions: Your urine shows findings consistent with a urinary tract infection. Please take all the antibiotics as directed even if your symptoms have improved. Please follow-up with your primary care physician as needed. Return to emergency room if you develop fever >101F, persistent vomiting, become lethargic, have severe pain in your sides, or any other symptoms that are concerning to you. Follow up with your [id number] hours for further care or return to the ED IMMEDIATELY if symptoms worsen or you have any concerns. If you cannot afford to follow up with your primary care physician a list of low cost clinics have been provided at the end of your discharge papers as well. Most prescribed medications have multiple side effects. The safest thing to do is when filling your prescription speak to your pharmacist regarding possible interactions with your normal home medications and over the counter medications such as Ibuprofen, Tylenol, Benadryl. If you experience any symptoms that cause you discomfort or concern you should discontinue the medication immediately and return to the emergency room or call your primary care physician. Prescriptions: Cephalexin Monohydrate [Keflex 500 mg Capsule] 500 mg PO BID 5 Days #10 capsule Naproxen [Naprosyn] 500 mg PO BID #14 tablet Tramadol HCl [Ultram 50 mg Tablet] 50 mg PO Q8H PRN #12 tablet PRN Reason: For Pain Scale 2-3 Referrals: SERVANDO YOU, COMMERCIAL FIELD INSPECTOR [Primary Care Provider] - Follow up as needed
[2018-04-10 13:08] LABS: ABSOLUTE BASOPHILS # (AUTO) 0.1 10^3/uL (0.0-0.2); ABSOLUTE EOSINOPHILS # (AUTO) 0.2 10^3/uL (0.0-0.6); ABSOLUTE LYMPHOCYTES (AUTO) 4.1 10^3/uL (0.5-4.7); ABSOLUTE MONOCYTES (AUTO) 0.5 10^3/uL (0.1-1.4); ABSOLUTE NEUT (AUTO) 5.5 10^3/uL (1.7-8.2); BASOPHILS % (AUTO) 0.8 % (0-2); EOSINOPHILS % (AUTO) 2.3 % (0-6); HEMOGLOBIN 14.5 g/dL (12.0-15.5); LYMPHOCYTES % (AUTO) 39.5 % (13-45); MEAN CORPUSCULAR HEMOGLOBIN 30.5 pg (27.0-33.4); MEAN CORPUSCULAR HGB CONC 33.6 g/dL (32.0-36.0); MEAN CORPUSCULAR VOLUME 91 fl (80-97); MONOCYTES % (AUTO) 4.8 % (3-13); PLATELET COUNT 222 10^3/uL (150-450); RED BLOOD COUNT 4.74 10^6/uL (3.72-5.28); RED CELL DISTRIBUTION WIDTH 13.4 % (11.5-14.0); SEGMENTED NEUTROPHILS % (AUTO) 52.6 % (42-78); TOTAL CELLS COUNTED % (AUTO) 100 %; WHITE BLOOD COUNT 10.4 10^3/uL (4.0-10.5)
[2018-04-10 13:16] LABS: APPEARANCE,URINE CLOUDY; BILIRUBIN,URINE NEGATIVE (NEGATIVE); COLOR,URINE YELLOW; GLUCOSE, URINE NEGATIVE (NEGATIVE); KETONES,URINE NEGATIVE (NEGATIVE); LEUKOCYTE ESTERASE,URINE NEGATIVE (NEGATIVE); NITRITE,URINE POSITIVE (NEGATIVE); PROTEIN,URINE NEGATIVE (NEGATIVE); URINE SPECIFIC GRAVITY 1.019; UROBILINOGEN,URINE NEGATIVE mg/dL (<2.0)
[2018-04-10 13:19] LABS: ALANINE AMINOTRANSFERASE 67 U/L (9-52); ALBUMIN 4.7 g/dL (3.5-5.0); ALKALINE PHOSPHATASE 94 U/L (38-126); ANION GAP 11 (5-19); ASPARTATE AMINO TRANSFERASE 32 U/L (14-36); BILIRUBIN,DIRECT 0.2 mg/dL (0.0-0.4); BILIRUBIN,TOTAL 0.5 mg/dL (0.2-1.3); BLOOD UREA NITROGEN 18 mg/dL (7-20); CALCIUM 9.8 mg/dL (8.4-10.2); CARBON DIOXIDE 26 mmol/L (22-30); CHLORIDE 105 mmol/L (98-107); GLUCOSE 139 mg/dL (75-110); POTASSIUM 4.3 mmol/L (3.6-5.0); SODIUM 142.1 mmol/L (137-145); TOTAL PROTEIN 7.8 g/dL (6.3-8.2)
--- NOTE | 2018-04-10 14:24 | ER Document Report ---
ED General - General Chief Complaint: Vaginal Bleeding Stated Complaint: VAGINAL BLEEDING/CRAMPING Time Seen by Provider: 04/10/18 12:14 Mode of Arrival: Ambulatory Information source: Patient, [facility] Records Notes: 42-year-old female with hyperthyroidism, hyperlipidemia, hypertension, type 2 diabetes, history of hysterectomy, appendectomy in 2017 presents with complaint of lower abdominal cramping and vaginal bleeding. Patient states that 1 week prior to arrival she started experiencing right flank pain. She describes it as a dull ache that is worse with movement. She denies any recent injury, overuse. She denies history of kidney stones. Patient states this morning when she urinated she wiped and had some brownish discharge on the toilet paper. Patient is not currently sexually active. She denies any other vaginal discharge. She does admit to nausea, nonbloody diarrhea and dysuria. TRAVEL OUTSIDE OF THE [place] IN LAST 30 DAYS: No COUNTRY TRAVELED TO/FROM: [facility] Onset: Last week Onset/Duration: Gradual, Persistent Quality of pain: Achy, Cramping Severity: Mild Associated symptoms: Diarrhea, Nausea. denies: Chest pain, Fever, Vomiting, Shortness of breath, Slow to respond Exacerbated by: Movement Relieved by: Denies Similar symptoms previously: No Recently seen / treated by doctor: No - Related Data Allergies/Adverse Reactions: No Known Allergies Allergy (Verified 08/14/17 14:45) Past Medical History - General Information source: Patient, [facility] Records - Social History Smoking Status: Never Smoker Chew tobacco use (# tins/day): No Frequency of alcohol use: None Drug Abuse: None Lives with: Family Family History: Reviewed & Not Pertinent Patient has suicidal ideation: No Patient has homicidal ideation: No - Past Medical History Cardiac Medical History: Reports: Hx Hypercholesterolemia, Hx Hypertension Denies: Hx Congestive Heart Failure, Hx Heart Attack Pulmonary Medical History: Reports: Hx Asthma, Hx Bronchitis, Hx Pneumonia Denies: Hx COPD, Hx Tuberculosis Neurological Medical History: Denies: Hx Seizures Endocrine Medical History: Reports: Hx Diabetes Mellitus Type 2 Renal/ Medical History: Denies: Hx End Stage Renal Disease, Hx Kidney Stones, Hx Peritoneal Dialysis GI Medical History: Denies: Hx Cirrhosis, Hx Gastroesophageal Reflux Disease, Hx Ulcer Musculoskeletal Medical History: Reports Hx Arthritis, Denies Hx Multiple Sclerosis Psychiatric Medical History: Denies: Hx Bipolar Disorder, Hx Depression, Hx Schizophrenia Past Surgical History: Reports: Hx Appendectomy, Hx Gynecologic Surgery - ovarian cysts, Hx Hysterectomy, Hx Orthopedic Surgery - L wrist, Hx Tubal Ligation. Denies: Hx Mastectomy - left breast biopsy - Immunizations Hx Diphtheria, Pertussis, Tetanus Vaccination: No Review of Systems - Review of Systems Notes: REVIEW OF SYSTEMS: CONSTITUTIONAL : Denies fever, chills, or sweats. Denies recent illness. Denies weight loss, recent hospitalizations. EENT: Denies visual changes, eye pain. Denies sore throat, oral lesions, difficulty swallowing. CARDIOVASCULAR: Denies chest pain. Denies palpitations. Denies lower extremity edema. RESPIRATORY: Denies cough. Denies shortness of breath, wheezing. GASTROINTESTINAL: Denies abdominal pain or distention. Denies vomiting, Denies blood in vomitus, stools, or per rectum. Denies black, tarry stools. Denies constipation. GENITOURINARY: Denies difficulty urinating, frequency, blood in urine, or vaginal discharge. MUSCULOSKELETAL: Denies back or neck pain or stiffness. Denies joint pain or swelling. SKIN: Denies rash, lesions or sores. HEMATOLOGIC : Denies easy bruising or bleeding. LYMPHATIC: Denies swollen glands. NEUROLOGICAL: Denies confusion or altered mental status. Denies loss of consciousness. Denies dizziness or lightheadedness. Denies headache. Denies weakness or paralysis. Denies problems difficulty with ambulation, slurred speech. Denies sensory loss, numbness, or tingling. Denies seizures. PSYCHIATRIC: Denies anxiety or stress. Denies depression, suicidal ideation, or homicidal ideation. Denies visual or auditory hallucinations. Physical Exam - Vital signs Vitals: Temp Pulse Resp BP Pulse Ox 97.9 F 85 15 116/63 99 04/10/18 11:13 04/10/18 11:13 04/10/18 11:13 04/10/18 11:13 04/10/18 11:13 - Notes Notes: PHYSICAL EXAMINATION: GENERAL: Well-appearing, well-nourished and in no acute distress. HEAD: Atraumatic, normocephalic. EYES: Pupils equal round and reactive to light, extraocular movements intact, conjunctiva are normal. ENT: Nares patent, oropharynx clear without exudates. Moist mucous membranes. NECK: Normal range of motion, supple without lymphadenopathy LUNGS: Breath sounds clear to auscultation bilaterally and equal. No wheezes rales or rhonchi. HEART: Regular rate and rhythm without murmurs ABDOMEN: Soft, nontender, nondistended abdomen. No guarding, no rebound. No masses appreciated. Female : Pelvic exam; External genitalia unremarkable. Speculum exam with no discharge. Vaginal wall unremarkable. . No adnexal tenderness or masses appreciated. Swabs obtained for gonorrhea, chlamydia and wet prep. Musculoskeletal: Normal range of motion, no pitting or edema. No cyanosis. NEUROLOGICAL: Cranial nerves grossly intact. Normal speech, normal gait. Normal sensory, motor exams PSYCH: Normal mood, normal affect. SKIN: Warm, Dry, normal turgor, no rashes or lesions noted. Course - Re-evaluation Re-evalutation: Laboratory 04/10/18 04/10/18 04/10/18 12:37 12:37 12:37 WBC 10.4 RBC 4.74 Hgb 14.5 Hct 43.0 MCV 91 MCH 30.5 MCHC 33.6 RDW 13.4 Plt Count 222 Seg Neutrophils % 52.6 Lymphocytes % 39.5 Monocytes % 4.8 Eosinophils % 2.3 Basophils % 0.8 Absolute Neutrophils 5.5 Absolute Lymphocytes 4.1 Absolute Monocytes 0.5 Absolute Eosinophils 0.2 Absolute Basophils 0.1 Sodium 142.1 Potassium 4.3 Chloride 105 Carbon Dioxide 26 Anion Gap 11 BUN 18 Creatinine 0.79 Est GFR ( Amer) > 60 Est GFR (Non-Af Amer) > 60 Glucose 139 H Calcium 9.8 Total Bilirubin 0.5 Direct Bilirubin 0.2 Neonat Total Bilirubin Not Reportable Neonat Direct Bilirubin Not Reportable Neonat Indirect Bili Not Reportable AST 32 ALT 67 H Alkaline Phosphatase 94 Total Protein 7.8 Albumin 4.7 Serum HCG, Qual NEGATIVE Urine Color Urine Appearance Urine pH Ur Specific [place] Urine Protein Urine Glucose (UA) Urine Ketones Urine Blood Urine Nitrite Urine Bilirubin Urine Urobilinogen Ur Leukocyte Esterase Urine WBC (Auto) Urine RBC (Auto) Urine Bacteria (Auto) Squamous Epi Cells Auto Urine Mucus (Auto) Urine Ascorbic Acid Trichomonas (Wet Prep) Vaginal WBC Vaginal Yeast Chlamydia DNA (PCR) N.gonorrhoeae DNA (PCR) 04/10/18 04/10/18 04/10/18 12:37 16:00 16:00 WBC RBC Hgb Hct MCV MCH MCHC RDW Plt Count Seg Neutrophils % Lymphocytes % Monocytes % Eosinophils % Basophils % Absolute Neutrophils Absolute Lymphocytes Absolute Monocytes Absolute Eosinophils Absolute Basophils Sodium Potassium Chloride Carbon Dioxide Anion Gap BUN Creatinine Est GFR ( Amer) Est GFR (Non-Af Amer) Glucose Calcium Total Bilirubin Direct Bilirubin Neonat Total Bilirubin Neonat Direct Bilirubin Neonat Indirect Bili AST ALT Alkaline Phosphatase Total Protein Albumin Serum HCG, Qual Urine Color YELLOW Urine Appearance CLOUDY Urine pH 5.0 Ur Specific [place] 1.019 Urine Protein NEGATIVE Urine Glucose (UA) NEGATIVE Urine Ketones NEGATIVE Urine Blood SMALL H Urine Nitrite POSITIVE H Urine Bilirubin NEGATIVE Urine Urobilinogen NEGATIVE Ur Leukocyte Esterase NEGATIVE Urine WBC (Auto) 12 Urine RBC (Auto) 5 Urine Bacteria (Auto) 3+ Squamous Epi Cells Auto 5 Urine Mucus (Auto) MOD Urine Ascorbic Acid NEGATIVE Trichomonas (Wet Prep) NO TRICHOMONAS SEEN Vaginal WBC NO WBCS SEEN Vaginal Yeast NO YEAST SEEN Chlamydia DNA (PCR) Cancelled N.gonorrhoeae DNA (PCR) Cancelled 04/10/18 16:00 WBC RBC Hgb Hct MCV MCH MCHC RDW Plt Count Seg Neutrophils % Lymphocytes % Monocytes % Eosinophils % Basophils % Absolute Neutrophils Absolute Lymphocytes Absolute Monocytes Absolute Eosinophils Absolute Basophils Sodium Potassium Chloride Carbon Dioxide Anion Gap BUN Creatinine Est GFR ( Amer) Est GFR (Non-Af Amer) Glucose Calcium Total Bilirubin Direct Bilirubin Neonat Total Bilirubin Neonat Direct Bilirubin Neonat Indirect Bili AST ALT Alkaline Phosphatase Total Protein Albumin Serum HCG, Qual Urine Color Urine Appearance Urine pH Ur Specific [place] Urine Protein Urine Glucose (UA) Urine Ketones Urine Blood Urine Nitrite Urine Bilirubin Urine Urobilinogen Ur Leukocyte Esterase Urine WBC (Auto) Urine RBC (Auto) Urine Bacteria (Auto) Squamous Epi Cells Auto Urine Mucus (Auto) Urine Ascorbic Acid Trichomonas (Wet Prep) Vaginal WBC Vaginal Yeast Chlamydia DNA (PCR) NOT DETECTED N.gonorrhoeae DNA (PCR) NOT DETECTED Limited or Localized CT 04/10/18 15:55 IMPRESSION: NO SIGNIFICANT OR ACUTE PROCESS IN THE ABDOMEN OR PELVIS. Temp Pulse Resp BP Pulse Ox 97.9 F 85 16 112/76 99 04/10/18 11:13 04/10/18 11:13 04/10/18 18:01 04/10/18 18:01 04/10/18 18:01 04/10/18 14:24 42-year-old female with history of hysterectomy, appendectomy in 2017 presents with complaint of abdominal cramping and vaginal bleeding that started this morning. Upon arrival vitals were reviewed and within normal limits. Patient is afebrile, normotensive and not hypoxic. Patient does not appear toxic or dehydrated. She is in no acute distress. Previous medical records and nursing notes reviewed. 04/10/18 15:57 Patient reevaluated and findings of blood in her urine were discussed. Patient does not have a history of kidney stones but states that her mother does. Did discuss risks of radiation exposure and young females but patient states that she has not had many CAT scans of her abdomen and would like to definitively know whether or not she has a kidney stone. We did discuss the option of ultrasound. Patient provided IV fluids and Toradol for discomfort. Pelvic exam was performed and did not show any evidence of vaginal bleeding, injury. Urinalysis does show blood but no clear infection. No evidence of gonorrhea, chlamydia, trichomonas, bacterial vaginosis, appendicitis, urolithiasis. Patient's flank pain could be musculoskeletal. No evidence of surgical abdomen. Patient was evaluated and treated as appropriate for the patient's presenting symptoms and complaint, with consideration of any critical or life threatening conditions that may be associated with their obtained history and exam as noted above. All results were discussed with patient . Patient provided the oppo rtunity to ask questions, and express concerns. Patient was educated on treatments based on their presumed diagnosis as noted above. At this time we will discharge the patient with return precautions and follow-up recommendations. Verbal discharge instructions given a the bedside. Medication warnings reviewed. Patient is in agreement with this plan and has verbalized understanding of return precautions. After careful consideration I feel that that patient can be safely discharged from the emergency department, they were advised to followup with a primary care physician in 2-3 days. Dictation on this chart was performed using voice recognition software and may result in unintended grammatical, spelling, syntax or errors. 04/11/18 02:20 04/11/18 02:24 - Vital Signs Vital signs: Temp Pulse Resp BP Pulse Ox 97.9 F 85 16 112/76 99 04/10/18 11:13 04/10/18 11:13 04/10/18 18:01 04/10/18 18:01 04/10/18 18:01 - Laboratory Result Diagrams: 04/10/18 12:37 04/10/18 12:37 Laboratory results interpreted by me: 04/10/18 04/10/18 12:37 12:37 Glucose 139 H ALT 67 H Urine Blood SMALL H Urine Nitrite POSITIVE H - Diagnostic Test Radiology reviewed: Image reviewed, Reports reviewed Discharge - Discharge Clinical Impression: Flank pain, Dysuria, Abdominal cramping Hematuria Qualifiers: Hematuria type: unspecified type Qualified Code(s): R31.9 - Hematuria, unspecified Condition: Good Disposition: HOME, SELF-CARE Instructions: Abdominal Pain ([facility]), Flank Pain ([facility]), Hematuria ([facility]), Urinary Tract Infection ([facility]) Additional Instructions: Your urine shows findings consistent with a urinary tract infection. Please take all the antibiotics as directed even if your symptoms have improved. Please follow-up with your primary care physician as needed. Return to emergency room if you develop fever >101F, persistent vomiting, become lethargic, have severe pain in your sides, or any other symptoms that are concerning to you. Follow up with your [id number] hours for further care or return to the ED IMMEDIATELY if symptoms worsen or you have any concerns. If you cannot afford to follow up with your primary care physician a list of low cost clinics have been provided at the end of your discharge papers as well. Most prescribed medications have multiple side effects. The safest thing to do is when filling your prescription speak to your pharmacist regarding possible interactions with your normal home medications and over the counter medications such as Ibuprofen, Tylenol, Benadryl. If you experience any symptoms that cause you discomfort or concern you should discontinue the medication immediately and return to the emergency room or call your primary care physician. Prescriptions: Cephalexin Monohydrate [Keflex 500 mg Capsule] 500 mg PO BID 5 Days #10 capsule Naproxen [Naprosyn] 500 mg PO BID #14 tablet Tramadol HCl [Ultram 50 mg Tablet] 50 mg PO Q8H PRN #12 tablet PRN Reason: For Pain Scale 2-3 Referrals: SERVANDO YOU, ATTILA [Primary Care Provider] - Follow up as needed
[2018-04-10] MEDS ORDERED: KETOROLAC TROMETHAMINE INJ/PF 30 MG/1 ML SDV IV ONE (15:56)
[2018-04-10] MEDS ORDERED: NORMAL SALINE 1000 ML 1,000 ML IV ONE (15:56)
[2018-04-10 16:14] LABS: T.VAGINALIS (WET MOUNT) NO TRICHOMONAS SEEN; WBCS (WET MOUNT) NO WBCS SEEN; YEAST (WET MOUNT) NO YEAST SEEN
--- NOTE | 2018-04-10 17:37 | RADIOLOGY REPORT (SQ) ---
EXAM DESCRIPTION: CT LTD RENAL STONE PROTOCOL ON COMPLETED DATE/TIME: 04/10/2018 5:00 pm REASON FOR STUDY: Hematuria/right flank pain COMPARISON: None. TECHNIQUE: CT scan of the abdomen and pelvis performed without intravenous or oral contrast. Images reviewed with lung, soft tissue, and bone windows. Reconstructed coronal and sagittal MPR images revi ewed. All images stored on PACS. All CT scanners at this facility use dose modulation, iterative reconstruction, and/or weight based d osing when appropriate to reduce radiation dose to as low as reasonably achievable (ALARA). [facility]: Dose Right [facility]: CareDose [facility]: Dose Right [facility]: Teradose 4D [facility]: [employer] RADIATION DOSE: CT Rad equipment meets quality standard of care and radiation dose reduction techniq ues were employed. CTDIvol: 18.7 mGy. DLP: 1076 mGy-cm.mGy. LIMITATIONS: None. FINDINGS: LOWER CHEST: No significant findings. No nodules or infiltrates. NON-CONTRASTED LIVER, SPLEEN, ADRENALS: The liver is hypoattenuating and enlarged. The spleen is nor mal. There is no adrenal mass. PANCREAS: No masses. No peripancreatic inflammatory changes. GALLBLADDER: No identified stones by CT criteria. No inflammatory changes to suggest cholecystitis. RIGHT KIDNEY AND URETER: No suspicious masses. Assessment limited by lack of IV contrast. No signif icant calcifications. No hydronephrosis or hydroureter. LEFT KIDNEY AND URETER: No suspicious masses. Assessment limited by lack of IV contrast. No signifi cant calcifications. No hydronephrosis or hydroureter. AORTA AND RETROPERITONEUM: No aneurysm. No retroperitoneal masses or adenopathy. BOWEL AND PERITONEAL CAVITY: No obvious masses or inflammatory changes. No free fluid. APPENDIX: Surgically absent. PELVIS, BLADDER, AND ABDOMINAL WALL:No abnormal masses. No free fluid. Bladder normal. BONES: No significant findings. OTHER: No other significant finding. IMPRESSION: NO SIGNIFICANT OR ACUTE PROCESS IN THE ABDOMEN OR PELVIS. COMMENT: Quality ID # [id number]: Final reports with documentation of one or more dose reduction techniques (e.g., Automated exposure control, adjustment of the mA and/or kV according to patient size, use of iterative reconstruction technique) TECHNICAL DOCUMENTATION: JOB ID: [id number] [employer]- All Rights Reserved Reading location - IP/workstation name: [email or web address]
[2018-04-10 17:41] LABS: CHLAM PCR NOT DETECTED (NOT DETECT); GON PCR NOT DETECTED (NOT DETECT)
[2018-04-10 18:32] VITALS: BP 112/76
== END 2018-04-10 18:20 | disposition home or self-care (01) ==
LOC: ER 11:01
DX: R31.9 Hematuria, unspecified (principal); R10.30 Lower abdominal pain, unspecified; R10.9 Unspecified abdominal pain; R30.0 Dysuria; R11.0 Nausea; R19.7 Diarrhea, unspecified; I10 Essential (primary) hypertension; E11.9 Type 2 diabetes mellitus without complications; Z90.710 Acquired absence of both cervix and uterus; J45.909 Unspecified asthma, uncomplicated
CPT/HCPCS: 99284; 96361; 96374; 36415; 87086; 87210; 84703; 85025; 87088; 80053; 81001; 87186; 87491; 87591; 76380; J1885; J7030

== ENCOUNTER → 2018-05-17 | Outpatient (CLI) | payer MEDICAID ==
[2018-05-17 12:40] LABS: ALANINE AMINOTRANSFERASE 71 U/L (9-52); ALBUMIN 4.5 g/dL (3.5-5.0); ALKALINE PHOSPHATASE 89 U/L (38-126); ANION GAP 8 (5-19); ASPARTATE AMINO TRANSFERASE 43 U/L (14-36); BILIRUBIN,DIRECT 0.1 mg/dL (0.0-0.4); BILIRUBIN,TOTAL 0.2 mg/dL (0.2-1.3); BLOOD UREA NITROGEN 20 mg/dL (7-20); CALCIUM 9.7 mg/dL (8.4-10.2); CARBON DIOXIDE 27 mmol/L (22-30); CHLORIDE 109 mmol/L (98-107); CHOLESTEROL 163.49 mg/dL (0-200); GLUCOSE 94 mg/dL (75-110); POTASSIUM 4.6 mmol/L (3.6-5.0); SODIUM 144.4 mmol/L (137-145); TRIGLYCERIDES 268 mg/dL (<150)
[2018-05-17 12:51] LABS: DIRECT LDL 89 mg/dL (<100)
[2018-05-17 12:55] LABS: VLDL CHOLESTEROL 53.6 mg/dL (10-31)
[2018-05-17 12:56] LABS: FREE T4 (FREE THYROXINE) 0.82 ng/dL (0.78-2.19)
[2018-05-17 13:10] LABS: THYROID STIMULATING HORMONE 0.19 uIU/mL (0.47-4.68)
== END ==
LOC: LAB 11:44
PROVIDERS: ATTEND Internal Medicine Cardiovascular Disease
DX: E11.9 Type 2 diabetes mellitus without complications (principal); E78.5 Hyperlipidemia, unspecified; E05.90 Thyrotoxicosis, unspecified without thyrotoxic crisis or storm; I10 Essential (primary) hypertension; Z79.899 Other long term (current) drug therapy
CPT/HCPCS: 36415; 80048; 80061; 80076; 83036; 84439; 84443

== ENCOUNTER 2018-09-30 16:41 | Emergency (ER) | payer MEDICAID | END 2018-09-30 17:53 | disposition left against medical advice (07) | LOC: ER 16:41 | DX: Z53.21 Procedure and treatment not carried out due to patient leaving prior to being seen by health care provider (principal) ==

== ENCOUNTER 2018-12-05 19:30 | Emergency (ER) | payer SELFPAY ==
--- NOTE | 2018-12-05 23:42 | RADIOLOGY REPORT (SQ) ---
CLINICAL HISTORY: pain after injury COMPARISON: None. TECHNIQUE: XR ELBOW 3 VIEWS 12/05/2018 10:56 PM CDT FINDINGS: There is no fracture. Joint spaces are preserved. Soft tissues are unremarkable. IMPRESSION: No acute osseous findings.
[2018-12-06] MEDS ORDERED: HYDROCODONE/ACETAMINOPHEN 5-325 MG TABLET PO ONE (00:05)
--- NOTE | 2018-12-06 00:10 | ER Document Report ---
ED General - General Chief Complaint: Arm Injury Stated Complaint: ARM PAIN Time Seen by Provider: 12/05/18 22:54 Primary Care Provider: SERVANDO YOU NP [Primary Care Provider] - Follow up in 3-5 days Mode of Arrival: Ambulatory Information source: Patient, [facility] Records Notes: 43-year-old female with hypertension, hyperlipidemia, type 2 diabetes, hyperthyroidism, arthritis presents with complaint of right elbow pain that started 6 weeks prior to arrival after a slip and fall in the shower. Patient states that she struck her right elbow on the bathtub approximately 6 weeks ago. She did not seek medical attention at that time. She states that she had pain initially but it has gradually worsened. Pain is worse with supination, flexion and with palpation to the radial head. Patient denies any rash, recent injury, fever, chills, nausea, vomiting, inability to move the elbow. She has tried Motrin and Tylenol without relief. TRAVEL OUTSIDE OF THE [place] IN LAST 30 DAYS: No - HPI Onset: Other Onset/Duration: Gradual, Persistent Quality of pain: Achy, Burning Severity: Moderate Pain Level: 2 Associated symptoms: denies: Allergy/hay fever, Body/muscle aches, Chest pain, Fever, Hurts to breath, Leg swelling, Nausea, Vomiting, Shortness of breath Exacerbated by: Movement Relieved by: Remaining still Similar symptoms previously: Yes Recently seen / treated by doctor: No - Related Data Allergies/Adverse Reactions: No Known Allergies Allergy (Verified 08/14/17 14:45) Past Medical History - General Information source: Patient - Social History Smoking Status: Never Smoker Frequency of alcohol use: None Drug Abuse: None Lives with: Family, Spouse/Significant other Family History: Reviewed & Not Pertinent Patient has suicidal ideation: No Patient has homicidal ideation: No - Past Medical History Cardiac Medical History: Reports: Hx Hypercholesterolemia, Hx Hypertension Denies: Hx Congestive Heart Failure, Hx Heart Attack Pulmonary Medical History: Reports: Hx Asthma, Hx Bronchitis, Hx Pneumonia Denies: Hx COPD, Hx Tuberculosis Neurological Medical History: Denies: Hx Seizures Endocrine Medical History: Reports: Hx Diabetes Mellitus Type 2 Renal/ Medical History: Denies: Hx End Stage Renal Disease, Hx Kidney Stones, Hx Peritoneal Dialysis GI Medical History: Denies: Hx Cirrhosis, Hx Gastroesophageal Reflux Disease, Hx Ulcer Musculoskeletal Medical History: Reports Hx Arthritis, Denies Hx Multiple Sclerosis Psychiatric Medical History: Denies: Hx Bipolar Disorder, Hx Depression, Hx Schizophrenia Past Surgical History: Reports: Hx Appendectomy, Hx Gynecologic Surgery - ovarian cysts, Hx Hysterectomy, Hx Orthopedic Surgery - L wrist, Hx Tubal Ligation. Denies: Hx Mastectomy - left breast biopsy - Immunizations Hx Diphtheria, Pertussis, Tetanus Vaccination: No Review of Systems - Review of Systems Notes: REVIEW OF SYSTEMS: CONSTITUTIONAL : Denies fever, chills, or sweats. Denies recent illness. Denies weight loss, recent hospitalizations. EENT: Denies visual changes, eye pain. Denies sore throat, oral lesions, difficulty swallowing. CARDIOVASCULAR: Denies chest pain. Denies palpitations. Denies lower extremity edema. RESPIRATORY: Denies cough. Denies shortness of breath, wheezing. GASTROINTESTINAL: Denies abdominal pain or distention. Denies nausea, vomiting, or diarrhea. Denies blood in vomitus, stools, or per rectum. Denies black, tarry stools. Denies constipation. GENITOURINARY: Denies difficulty urinating, painful urination, frequency, blood in urine, or vaginal discharge. MUSCULOSKELETAL: Denies back or neck pain or stiffness. + Right elbow pain SKIN: Denies rash, lesions or sores. HEMATOLOGIC : Denies easy bruising or bleeding. LYMPHATIC: Denies swollen glands. NEUROLOGICAL: Denies confusion or altered mental status. Denies loss of consciousness. Denies dizziness or lightheadedness. Denies headache. Denies weakness or paralysis. Denies problems difficulty with ambulation, slurred speech. Denies sensory loss, numbness, or tingling. Denies seizures. PSYCHIATRIC: Denies anxiety or stress. Denies depression, suicidal ideation, or homicidal ideation. Denies visual or auditory hallucinations. Physical Exam - Vital signs Vitals: Temp Pulse Resp BP Pulse Ox 98.3 F 88 17 138/85 H 97 12/05/18 19:54 12/05/18 19:54 12/05/18 19:54 12/05/18 19:54 12/05/18 19:54 - Notes Notes: PHYSICAL EXAMINATION: GENERAL: Well-appearing, well-nourished and in no acute distress. HEAD: Atraumatic, normocephalic. EYES: Pupils equal round and reactive to light, extraocular movements intact, conjunctiva are normal. ENT: Nares patent, oropharynx clear without exudates. Moist mucous membranes. NECK: Normal range of motion, supple without lymphadenopathy LUNGS: Breath sounds clear to auscultation bilaterally and equal. No wheezes rales or rhonchi. HEART: Regular rate and rhythm without murmurs ABDOMEN: Soft, nontender, nondistended abdomen. No guarding, no rebound. No masses appreciated. Female : deferred Musculoskeletal: Normal range of motion, no pitting or edema. No cyanosis. Right elbow tender with palpation to the radial head. Pain with pronation. Full range of motion of the right elbow. No swelling, erythema, crepitus. NEUROLOGICAL: Cranial nerves grossly intact. Normal speech, normal gait. Normal sensory, motor exams PSYCH: Normal mood, normal affect. SKIN: Warm, Dry, normal turgor, no rashes or lesions noted. Course - Re-evaluation Re-evalutation: 12/06/18 00:33 Elbow X-Ray 12/05/18 22:56 IMPRESSION: No acute osseous findings. Temp Pulse Resp BP Pulse Ox 98.3 F 88 17 138/85 H 97 12/05/18 19:54 12/05/18 19:54 12/05/18 19:54 12/05/18 19:54 12/05/18 19:54 43-year-old female presents with right elbow pain that has been present for 6 weeks after falling and striking her elbow in the bathtub. Vital signs reviewed and within normal limits. Patient does not appear toxic or dehydrated. She is in no acute distress. Previous nursing notes and medical records reviewed. Exam is significant for tenderness with palpation to the radial head and pain with pronation. Suspected tendinitis. No evidence of septic arthritis, septic joint. X-rays obtained and within normal limits. Patient was given an Toby wrap and advised to ice and was prescribed Mobic. Advised to follow-up with her primary care physician for possible orthopedic referral. Patient was evaluated and treated as appropriate for the patient's presenting symptoms and complaint, with consideration of any critical or life threatening conditions that may be associated with their obtained history and exam as noted above. All results were discussed with patient. Patient provided the opportunity to ask questions, and express concerns. Patient was educated on treatments based on their presumed diagnosis as noted above. At this time we will discharge the patient with return precautions and follow-up recommendations. Verbal discharge instructions given a the bedside. Medication warnings reviewed. Patient is in agreement with this plan and has verbalized understanding of return precautions. After careful consideration I feel that that patient can be safely discharged from the emergency department, they were advised to followup with a primary care physician in 2-3 days. Dictation on this chart was performed using voice recognition software and may result in unintended grammatical, spelling, syntax or errors. - Vital Signs Vital signs: Temp Pulse Resp BP Pulse Ox 98.3 F 88 17 138/85 H 97 12/05/18 19:54 12/05/18 19:54 12/05/18 19:54 12/05/18 19:54 12/05/18 19:54 - Diagnostic Test Radiology reviewed: Image reviewed, Reports reviewed Discharge - Discharge Clinical Impression: Tendinitis Contusion of elbow, right Qualifiers: Encounter type: initial encounter Qualified Code(s): S50.01XA - Contusion of right elbow, initial encounter Condition: Good Disposition: HOME, SELF-CARE Instructions: Tennis Elbow (Lateral Epicondylitis) ([facility]) Additional Instructions: Follow up with your [id number] hours for further care or return to the ED IMMEDIATELY if symptoms worsen or you have any concerns. If you cannot afford to follow up with your primary care physician a list of low cost clinics have been provided at the end of your discharge papers as well. Most prescribed medications have multiple side effects. The safest thing to do is when filling your prescription speak to your pharmacist regarding possible interactions with your normal home medications and over the counter medications such as Ibuprofen, Tylenol, Benadryl. If you experience any symptoms that cause you discomfort or concern you should discontinue the medication immediately and return to the emergency room or call your primary care physician. Prescriptions: Meloxicam [Mobic] 15 mg PO DAILY #14 tablet Forms: Elevated Blood Pressure Referrals: SERVANDO YOU NP [Primary Care Provider] - Follow up in 3-5 days
[2018-12-06 00:43] VITALS: BP 143/104
== END 2018-12-06 00:43 | disposition home or self-care (01) ==
LOC: ER 19:30
DX: S50.01XA Contusion of right elbow, initial encounter (principal); M77.9 Enthesopathy, unspecified; M25.521 Pain in right elbow; M79.10 Myalgia, unspecified site; R07.9 Chest pain, unspecified; R50.9 Fever, unspecified; R06.02 Shortness of breath; M79.89 Other specified soft tissue disorders; R11.2 Nausea with vomiting, unspecified; W01.0XXA Fall on same level from slipping, tripping and stumbling without subsequent striking against object, initial encounter; I10 Essential (primary) hypertension; E11.9 Type 2 diabetes mellitus without complications

== ENCOUNTER 2019-09-01 18:31 | Emergency (ER) | payer BC ==
[2019-09-01] MEDS ORDERED: KETOROLAC TROMETHAMINE 60 MG/2 ML SDV IM ONE (20:15)
[2019-09-01 20:17] VITALS: BP 141/54
--- NOTE | 2019-09-01 20:20 | ER Document Report ---
ED Fall - General Chief Complaint: Fall Stated Complaint: BACK PAIN/NECK PAIN Time Seen by Provider: 09/01/19 20:15 Primary Care Provider: [facility] [Provider Group] - Follow up tomorrow SERVANDO YOU NP [Primary Care Provider] - Follow up as needed Mode of Arrival: Ambulatory Information source: Patient Notes: 44-year-old female presented to ED for complaint of pain to the upper back the right shoulder right elbow since this morning. She states she tripped over the dog on the steps. She states that she thought she could stay home and she would be okay but the pain is gotten progressively worse throughout the day. Patient has full range of motion to both shoulders elbows and arms. She does have some muscle pain to the upper back but respirations are regular unlabored. No bruising noted, mild generalized pressure to the upper back with no pinpoint tenderness. Patient is alert oriented respirations regular nonlabored speaking in full sentences. TRAVEL OUTSIDE OF THE [place] IN LAST 30 DAYS: No - HPI Occurred: This morning Where: Home, Indoors Context: Tripped Associated symptoms: None Location of injury/pain: Back - Upper back, Elbow - Right, Shoulder - Right shoulder Quality of pain: Achy, Sharp Severity: Moderate - Related data Allergies/Adverse Reactions: No Known Allergies Allergy (Verified 09/01/19 20:04) Home Medications: lisinopril-hctz, simvastatin, metformin, levothyroxine, ozempic, symbicort, albuterol Past Medical History - General Information source: Patient - Social History Smoking Status: Former Smoker Chew tobacco use (# tins/day): No Frequency of alcohol use: None Drug Abuse: None Family History: Reviewed & Not Pertinent Patient has homicidal ideation: No - Past Medical History Cardiac Medical History: Reports: Hx Hypercholesterolemia, Hx Hypertension Pulmonary Medical History: Reports: Hx Asthma, Hx Bronchitis, Hx Pneumonia EENT Medical History: Reports: None Neurological Medical History: Reports: None Endocrine Medical History: Reports: Hx Diabetes Mellitus Type 2 Renal/ Medical History: Reports: None Malignancy Medical History: Reports: None GI Medical History: Reports: None Musculoskeletal Medical History: Reports Hx Arthritis, Reports Hx Musculoskeletal Trauma Skin Medical History: Reports None Psychiatric Medical History: Reports: None Traumatic Medical History: Reports: None Infectious Medical History: Reports: None Past Surgical History: Reports: Hx Appendectomy, Hx Gynecologic Surgery - ovarian cysts, Hx Hysterectomy, Hx Orthopedic Surgery - L wrist, Hx Tubal Ligation - Immunizations Hx Diphtheria, Pertussis, Tetanus Vaccination: No Review of Systems - Review of Systems Constitutional: No symptoms reported EENT: No symptoms reported Cardiovascular: No symptoms reported Respiratory: No symptoms reported Gastrointestinal: No symptoms reported Genitourinary: No symptoms reported Female Genitourinary: No symptoms reported Musculoskeletal: Back pain, Joint pain - Right shoulder pain, Muscle pain, Muscle stiffness. denies: Joint swelling Skin: No symptoms reported Hematologic/Lymphatic: No symptoms reported Neurological/Psychological: No symptoms reported -: Yes All other systems reviewed and negative Physical Exam - Vital signs Vitals: Temp Pulse Resp BP Pulse Ox 99.1 F 95 18 137/87 H 96 09/01/19 18:44 09/01/19 18:44 09/01/19 18:44 09/01/19 18:44 09/01/19 18:44 Interpretation: Normal - General General appearance: Appears well, Alert - HEENT Head: Normocephalic, Atraumatic Eyes: Normal Pupils: PERRL - Respiratory Respiratory status: No respiratory distress Chest status: Nontender Breath sounds: Normal Chest palpation: Normal - Cardiovascular Rhythm: Regular Heart sounds: Normal auscultation Murmur: No - Abdominal Inspection: Normal Distension: No distension Bowel sounds: Normal Tenderness: Nontender Organomegaly: No organomegaly - Back Back: Normal, Nontender - Extremities General upper extremity: Normal inspection, Normal color, Normal ROM, Normal temperature General lower extremity: Normal inspection, Nontender, Normal color, Normal ROM, Normal temperature, Normal weight bearing. No: Benji's sign Shoulder: Tender. No: Abrasion, Deformity, Dislocation, Ecchymosis, Insta bility, Laceration, Limited ROM Arm: Normal, Nontender Elbow: Tender. No: Abrasion, Deformity, Dislocation, Ecchymosis, Instability, Joint effusion, Laceration, Limited ROM, Swollen bursa Forearm: Normal, Nontender Wrist: Normal, Nontender Hand: No evidence of human bite, No evidence of FB, Swelling - Neurological Neuro grossly intact: Yes Cognition: Normal Orientation: AAOx4 Sonya Coma Scale Eye Opening: Spontaneous [place] Coma Scale Verbal: Oriented [place] Coma Scale Motor: Obeys Commands [place]ard Coma Scale Total: 15 Speech: Normal Motor strength normal: LUE, RUE, LLE, RLE Sensory: Normal - Psychological Associated symptoms: Normal affect, Normal mood - Skin Skin Temperature: Warm Skin Moisture: Dry Skin Color: Normal Course - Re-evaluation Re-evalutation: 09/02/19 00:16 Patient had full range of motion to both shoulders elbows wrist arms. She had clear lung sounds. She had muscle tenderness bilateral upper back and muscle tenderness to the shoulder. I did give her instructions on elevating the right arm and following up with her primary care doctor. I did talk to her to follow- up with orthopedics there is no reason for x-rays at this time as there is no bony tenderness at this time. Patient was discharged home after she received a Toradol injection in the emergency room and a prescription for Flexeril. Patient was given instructions on ice packs and warm packs for her pain. Adriana godinez verbalized understanding agreement with this treatment plan and she was discharged home. - Vital Signs Vital signs: Temp Pulse Resp BP Pulse Ox 99.1 F 91 18 141/54 H 97 09/01/19 20:09 09/01/19 20:09 09/01/19 20:09 09/01/19 20:09 09/01/19 20:09 Discharge - Discharge Clinical Impression: Fall (on) (from) other stairs and steps, initial encounter, Upper back pain Right shoulder injury Qualifiers: Encounter type: initial encounter Qualified Code(s): S49.91XA - Unspecified injury of right shoulder and upper arm, initial encounter Condition: Stable Disposition: HOME, SELF-CARE Additional Instructions: MUSCLE STRAIN: You have strained a muscle -- torn the fibers within the muscle. This often occurs with strenuous exertion, or during an injury that suddenly stretches the muscle. The seriousness of a strain varies. Some strains heal within days, others cause problems for months. X-rays cannot show a muscle strain. X-rays are taken only if symptoms suggest that a fracture could be present. The usual treatment of a muscle strain is rest and ice packs. Sometimes, a sling, splint, or crutches may be necessary to rest the muscle. The muscle can be used again once pain subsides. Severe strains require a special exercise and stretching program to prevent permanent stiffness and disability. Your doctor will advise you if this will be necessary. Call the doctor immediately if pain or swelling becomes severe, or if numbness or discoloration develop. CONTUSION: Your injury has resulted in a contusion -- a crushing of the deep tissues. No injury to important structures was detected during the physician's exam. Contusions vary in the amount of pain they cause, and in the length of time required for healing. Typically, the area will become bruised, and will remain painful to touch for two or three weeks. However, most patients are back to working and playing within a few days. After the initial period of rest and cold-packs, your symptoms (together with the doctor's recommendations) will determine how rapidly you can get back to full activity. Usually this means "do what feels okay, but don't do things that hurt." If re-examination was recommended, it's important to follow up as instructed. Call the doctor or return any time if pain increases, if swelling becomes severe, if you develop numbness or weakness in an injured extremity, or if any other alarming symptoms occur. Shoulder Injury You have injured your shoulder. This usually results from stretching or tearing of the tendons during trauma. Time and protection are required in order to heal properly. Many injuries are quite disabling, and should be taken seriously. Initial treatment includes cold packs and a sling to rest the shoulder. The physician has assessed the seriousness of your injury, and has outlined a treatment plan. Understand that this treatment may change, depending on how you progress. If a re-examination was recommended, it is important that you follow up as instructed. Some shoulder injuries (such as partial tear of the rotator cuff) are only suspected after you've failed to improve. Call us if there's severe pain, numbness, or loss of function. Exercise Program for the Shoulder Since the shoulder moves in so many directions, the joint attachment is weak. Muscles provide most of the stability to the shoulder. You must exercise your shoulder to prevent painful instability or stiffening. PASSIVE - These may be begun within a few days of the injury. While standing, lean forward, allowing the arm to hang down towards the floor. Move the arm in small circles while slowly twisting your chest towards and away from the hanging arm. Do this for one minute. ACTIVE - These may be performed when the doctor gives permission. Begin with the arms at the sides. Raise the arms forward (shoulder's width apart) until they reach shoulder level. Then slowly swing both arms back until they are aiming straight out away from each other. Then bring them forward again, and finally, lower them to your sides. Repeat 20 to 30 times. As you improve, put weights in your hands for the exercise. Start with one pound, and work up to 10 pounds. Never use more than is comfortable. Athletes may work up to 30 pounds. USE OF TYLENOL (ACETAMINOPHEN): Acetaminophen may be taken for pain relief or fever control. It's much safer than aspirin, offering a wider range of "safe" dosages. It is safe during . Some brand names are Tylenol, Panadol, Datril, Anacin 3, Tempra, and Liquiprin. Acetaminophen can be repeated every four hours. The following are maximum recommended dosages: WEIGHT Dose Drops Elixir Chewable(80mg) (LBS.) drprs=droppers tsp=teaspoon 6 40 mg 0.4 ml (1/2) 6-11 80 mg 0.8 ml (full) tsp 1 tab 12-16 120 mg 1 1/2 drprs 3/4 tsp 1 1/2 tabs 17-23 160 mg 2 drprs 1 tsp 2 tabs 24-30 240 mg 3 drprs 1 1/2 tsp 3 tabs 30-35 320 mg 2 tsp 4 tabs 36-41 360 mg 2 1/4 tsp 4 1/2 tabs 42-47 400 mg 2 1/2 tsp 5 tabs 48-53 480 mg 3 tsp 6 tabs 54-59 520 mg 3 1/4 tsp 6 1/2 tabs 60-64 560 mg 3 1/2 tsp 7 tabs 65-70 600 mg 3 3/4 tsp 7 1/2 tabs 71-76 640 mg 4 tsp 8 tabs 77-82 720 mg 4 1/2 tsp 9 tabs 83-88 800 mg 5 tsp 10 tabs >89 pounds or adults 650 mg to 900 mg Acetaminophen can be repeated every four hours. Maximum dose not to exceed 4000 mg a day. These maximum recommended dosages are slightly higher than the dosages written on the product container, but these dosages are very safe and below the toxic dosage for acetaminophen. ICE PACKS: Apply ice packs frequently against the painful area. Many different schedules are recommended, such as "20 minutes on, 20 minutes off" or "one hour ice, two hours rest." If you need to work, you may need to go longer between ice treatments. You should plan to have the area ice packed AT LEAST one fourth of the time. The ice should be applied over the wrap, tape, or splint, or over a layer of cloth -- not directly against the skin. Some ice bags have a built-in cloth and can be put directly on the skin. WARM PACKS: After approximately two days, apply gentle heat (such as a heating pad or hot water bottle) for about 20 to 30 minutes about every two hours -- at least four times daily. Warmth and elevation will help you make a more rapid recovery, and will ease the pain considerably. Do not use HOT heat, and never apply heat for longer than 30 minutes. The continuous heat can invisibly damage skin and muscles -- even when no burn is seen on the surface. Damaged muscles can make you MORE sore. MUSCLE RELAXERS: Muscle relaxing medications are usually prescribed for acute muscle spasm or injury to the neck and back. They are often combined with antiinflammatory pain medication for increased relief. You may stop the muscle relaxer when the pain and stiffness have improved. Start the medication again if spasms recur. Muscle relaxers may cause drowsiness, especially with the first dose. Do not operate machinery or drive while under the effects of the medication. Most muscle relaxers last up to 24 hours. Do not combine the medication with alcohol. Toradol Injection You have been given an injection of ketorolac tromethamine (Toradol). This is an excellent, safe drug for pain control. It also has potent antiinflammatory action. You should have significant pain relief within about one hour. Toradol is not addicting and is non-sedating. It does not interfere with driving or work. Call or return if you develop itching, hives, shortness of breath, or rash. FOLLOW-UP CARE: If you have been referred to a physician for follow-up care, call the physicians office for an appointment as you were instructed or within the next two days. If you experience worsening or a significant change in your symptoms, notify the physician immediately or return to the Emergency Department at any time for re-evaluation. Prescriptions: Cyclobenzaprine HCl [Flexeril 10 mg Tablet] 10 mg PO TIDP PRN #15 tab PRN Reason: Forms: Elevated Blood Pressure Referrals: SERVANDO YOU NP [Primary Care Provider] - Follow up as needed [facility] [Provider Group] - Follow up tomorrow
== END 2019-09-01 20:26 | disposition home or self-care (01) ==
LOC: ER 18:31
DX: S49.91XA Unspecified injury of right shoulder and upper arm, initial encounter (principal); M54.6 Pain in thoracic spine; M54.2 Cervicalgia; W10.9XXA Fall (on) (from) unspecified stairs and steps, initial encounter; Y92.009 Unspecified place in unspecified non-institutional (private) residence as the place of occurrence of the external cause; E78.00 Pure hypercholesterolemia, unspecified; I10 Essential (primary) hypertension; E11.9 Type 2 diabetes mellitus without complications; Z90.710 Acquired absence of both cervix and uterus
CPT/HCPCS: 99283; 96372; J1885